=== PATIENT | female | born 1975 | race Caucasian/White ===

== ENCOUNTER 2018-07-02 18:36 | Inpatient (IN) | payer MEDICAID ==
[~2018-07-02] VITALS: Ht 162.6 cm; Wt 114.8 kg
[~2018-07-02 18:36] MED LIST: ACETAMINOPHEN-1 EAC1 PO; ALPRAZOLAM; AMBIEN CR 6.26.25 M1 PO; AMBIENCR; AMITRIPTYLINE H10 M1; AMOXICILLIN 50500 M1 PO; AMOXICILLIN 50500 MG PO; AMOXICILLIN/POTASSIU; ANTI-INFLAMMATORY; ATIVAN1 MG PO; BACLOFEN 10MG T10 M1 PO; BACTRIM DS TAB1 EACH PO; BENTYL20 MG PO; CARISOPRODOL 3350 MG PO; CLONAZEPAM; CYMBALTA60 MG; CYMBALTA60 MG PO; DARVOCET N PO; EFFEXOR; ESTRACE0.5 MG PO; FAMOTIDINE PO; FIORICET 50-321 EACH PO; FLEXERIL PO; GEODON60 MG PO; GEODON80 MG PO; HYDROCODON-ACE1 EAC7 PO; HYDROCODONE-AP1 EAC6 PO; IBUPROFEN 800800 M1 PO; KEFLEX500 MG PO; LYRICA; LYRICA150 MG; MEDROLDOSEPACK PO; NAPROSYN500 MG PO; NEURONTIN 300300 M1; NORCO 5-325 TA1 EACH; NORCO 5-325 TA1 EACH PO; NORFLEX100 MG PO; OLEPTRO ER300 M1 PO; PERCOCET 5-3251 EACH PO; PHENERGAN 25 MG25 M1 PO; PHENERGAN25 MG RE; PREDNISONE50 MG PO; PREMPRO 0.625-1 EAC1 PO; PRISTIQ50 M1 PO; PROMETHAZINE12.5 M1 PO; PROZAC; PROZAC40 MG; RELAFEN750 MG PO; SOMA250 MG PO; TEMAZEPAM; TORADOL 10 MG T10 MG PO; TRAZODONE HCL100 MG; ULTRAM 50MG TAB50 MG PO; VALIUM2 MG PO; VALIUM5 MG PO; VICODIN 5-5001 EACH PO; VICOPROFEN 2001 EACH PO; VISTARIL 25 MG25 M1 PO; VISTARIL PO; XANAFLEX; XANAX XR1 MG PO; ZANAFLEX4 M1
[2018-07-02 18:37] VITALS: BP 146/80
[2018-07-02] MEDS ORDERED: TEGRETOL XR100 MG PO (18:45)
[2018-07-02] MEDS ORDERED: XANAX1 MG PO (18:45)
[2018-07-02] MEDS ORDERED: BUSPIRONE HCL10 MG PO (18:46)
[2018-07-02 19:10] LABS: ABSOLUTE BASOPHILS 0.1 thou/uL (0.0-0.2); ABSOLUTE EOSINOPHILS 0.7 thou/uL (0.0-0.7); ABSOLUTE LYMPHOCYTES 3.2 thou/uL (0.8-5.3); ABSOLUTE MONOCYTES 1.1 thou/uL (0.0-1.2); BASOPHILS 0.5 %; EOSINOPHILS 5.2 %; HEMATOCRIT 34.7 % (37.0-47.0); HEMOGLOBIN 11.5 gm/dL (12.0-15.0); LYMPHOCYTES 22.8 %; MCH 32.4 pg (26.0-34.0); MCHC 33.3 g/dL (28.0-37.0); MCV 97.4 fL (80.0-100.0); MONOCYTES 7.8 %; MPV 7.4 fl. (7.2-11.1); NUCLEATED RBCS 0 /100WBC; PLATELET COUNT* 306 thou/uL (150-400); POLYS 63.7 %; RBC 3.56 mil/uL (4.20-5.00); RDW-CV 14.4 % (10.5-14.5)
[2018-07-02 19:28] LABS: ANION GAP 11 mmol/L (7-16); BUN 15 mg/dL (7-18); CALCIUM 8.8 mg/dL (8.5-10.1); CHLORIDE 102 mmol/L (98-107); CO2 24 mmol/L (21-32); CREATININE 0.7 mg/dL (0.6-1.3); GLUCOSE 108 mg/dL (70-99); SODIUM 137 mmol/L (136-145)
[2018-07-02 19:46] LABS: ALBUMIN 3.6 g/dL (3.4-5.0); ALKALINE PHOSPHATASE 74 U/L (46-116); SGOT 27 U/L (15-37); SGPT 25 U/L (30-65); TOTAL BILIRUBIN 0.3 mg/dL (<0.1-1.0); TOTAL PROTEIN 7.3 g/dL (6.4-8.2); TROPONIN-I LEVEL <0.06 ng/mL (<0.06)
[2018-07-02 20:05] LABS: LIPASE 6128 U/L (73-393)
[2018-07-02 20:53] VITALS: BP 129/82
[2018-07-02 21:05] VITALS: BP 144/83
--- NOTE | 2018-07-03 05:51 | NUR ---
PT HAS SLEPT ON AND OFF FOR BRIEF PERIODS SINCE ARRIVING FROM ER. CO UPPER ABD PAIN 10/10-MEDICATED WITH MORPHINE 8MG AND CURRENTLY FENTANYL 100MCG FOR SHORT LIVED PAIN CONTROL. PT NPO, MOUTH SWABS GIVEN. ZOFRAN GIVEN FOR NAUSEA-DRY HEAVES BUT NO EMESIS. UP WITH SBA TO BSC TO VOID SEVERAL TIMES. LHAND IVF INFUSING PER PUMP. NICOTINE PATCH PLACED PER PT REQUEST. URINE SPECIMEN SENT TO LAB. ABLE TO USE CALL LITE AND MAKE NEEDS KNOWN. BED ALARM ON FOR SAFETY, CALL LITE IN EASY REACH.
[2018-07-03 05:52] LABS: URINE BILIRUBIN NEGATIVE (Negative); URINE BLOOD NEGATIVE (Negative); URINE CLARITY CLEAR; URINE COLOR YELLOW; URINE GLUCOSE-RANDOM NEGATIVE (Negative); URINE KETONES NEGATIVE (Negative); URINE LEUKOCYTES NEGATIVE (Negative); URINE NITRITE NEGATIVE (Negative); URINE PROTEIN NEGATIVE (Negative); URINE SPECIFIC GRAVITY 1.025 (1.005-1.030); URINE UROBILINOGEN 0.2 E.U./dl (0.2-1.0)
[2018-07-03 09:48] LABS: CHOLESTEROL 234 mg/dL (<200); HDL CHOLESTEROL 31 mg/dL (>40); LDL CHOLESTEROL 144 mg/dL (<100); TC:HDL 7.5 Ratio (Not establshd); TRIGLYCERIDE 298 mg/dL (<150); VLDL 60 mg/dL (<40)
[2018-07-03 09:51] LABS: SERUM ASSESSMENT Clear
--- NOTE | 2018-07-03 10:45 | EKG ---
[place] [address] ELECTROCARDIOGRAM REPORT Name: KISHANBEN PERRY Room: [address] ADM IN .R.#: [id number] Admission: 07/02/18 Attend Phys: Yrn Reina Discharge: Date of : 71 Report #: [id number] THIS REPORT FOR: //name// [facility] ED Test Date: 2018-07-02 Test Time: 19:14:53 Pat Name: BEN HOLLEY Department: Room: [facility] Gender: F Administrative Support Associate: : 1975 Requested By: Rubina Mills Order Number: [id number] MD: Efraín Villasenor Measurements Intervals [place] Rate: 101 P: -25 MS: 130 QRS: 60 QRSD: 119 T: -3 QT: 380 QTc: 493 Interpretive Statements Sinus tachycardia Nonspecific intraventricular conduction delay Low voltage, precordial leads Nonspecific T abnormalities, anterior leads Baseline wander in lead(s) V1,V4,V5 Compared to ECG 08/12/2007 13:25:15 Intraventricular conduction delay now present Low QRS voltage now present T-wave abnormality now present Sinus rhythm no longer present Electronically Signed On 07-03-2018 10:45:26 CDT by Efraín Villasenor [email or web address] <ELECTRONICALLY SIGNED> By: Efraín Villasenor MD, [facility] 07/03/18 1045 13 13 Efraín Villasenor MD, [facility] /EPI
--- NOTE | 2018-07-03 14:47 | NUR ---
SPOKE WITH PT. SHE SAID SHE LIVES WITH HER MOM AND HELPS TAKE CARE OF HER. MOM HAS M.S. PT.IS NOT SUPPOSED TO DO ANY HEAVY LIFTING WITH HER LEGS. HER DAUGHTER AMD FRIEND HELP HER WITH HER MOM. 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 PT.DOES NOT HAVE A CAR. SHE HAS A STOOL RISER AND A WALKER. SHE DOESN'T HAVE TO USE HER WALKER MUCH ANYMORE. SHE SAID SHE SHOULD HAVE NO DISCHARGE NEEDS. CM WILL FOLLOW.
[2018-07-03 16:54] VITALS: BP 128/84
--- NOTE | 2018-07-03 17:10 | NUR ---
SHIFT NOTE - PT CALLING OUT SEVERAL TIMES THIS SHIFT FOR PAIN MEDICATION. MEDS TITRATED TO MSO4 8MG Q2HR/PRN. PT UP TO COMMODE WITH STANDBY. PT STILL NPO. IVF INFUSING.
[2018-07-03 20:50] VITALS: BP 112/68
[2018-07-04 03:59] LABS: HEMATOCRIT 32.4 % (37.0-47.0); MCH 32.9 pg (26.0-34.0); MCV 96.8 fL (80.0-100.0); MPV 7.4 fl. (7.2-11.1); RBC 3.35 mil/uL (4.20-5.00); RDW-CV 14.2 % (10.5-14.5); WBC 10.7 thou/uL (4.0-11.0)
[2018-07-04 04:23] LABS: ALBUMIN 2.9 g/dL (3.4-5.0); CALCIUM 7.7 mg/dL (8.5-10.1); CREATININE 0.4 mg/dL (0.6-1.3); MAGNESIUM 1.8 mg/dL (1.8-2.4); POTASSIUM 3.6 mmol/L (3.5-5.1); TOTAL PROTEIN 5.9 g/dL (6.4-8.2)
--- NOTE | 2018-07-04 05:33 | NUR ---
PT RECEIVING IV MORPHINE 8MG EVERY 2-3 HOURS PRN FOR ABD PAIN 06/05 WITH FAIR RESULTS. PT SLEEPING/SNORING AFTER DOSING, SATS DROPPING TO 84% WITH SOMNOLENCE. O2 2L PLACED ON PT TO KEEP SATS >92%. UP WITH SBA TO BSC TO VOID. ZOFRAN GIVEN PRN FOR CO NAUSEA CAUSED BY PAIN MED PT STATES, NO EMESIS SEEN. NPO. AM LABS DRAWN. LIPASE LAB IMPROVED BUT STILL ELEVATED THIS MORNING. L HAND IVF INFUSING PER PUMP. ABLE TO USE CALL LITE AND MAKE NEEDS KNOWN.
[2018-07-04 08:30] VITALS: BP 127/79
[2018-07-04 16:00] VITALS: BP 149/88
--- NOTE | 2018-07-04 17:04 | NUR ---
PATIENT ALERT AND ORIENTED X 4. VITAL SIGNS STABLE ON ROOM AIR. UP WITH ASSISTANCE TO THE BEDSIDE COMODE. IV PATENT WITH FLUIDS INFUSING. PAIN AND NAUSEA BEING MANAGED WITH IV MEDICATIONS. TOLERATING CLEAR LIQUID DIET. FALL PRECAUTIONS IN PLACE AND BED ALARM ON. HOURLY ROUNDS MAINTAINED THROUGHOUT THE SHIFT. CALL LIGHT WITHIN REACH. NURSING WILL CONTINUE TO MONITOR.
[2018-07-04 20:15] VITALS: BP 131/83
[2018-07-05 04:17] LABS: ABSOLUTE EOSINOPHILS 0.3 thou/uL (0.0-0.7); ABSOLUTE LYMPHOCYTES 2.1 thou/uL (0.8-5.3); ABSOLUTE MONOCYTES 0.8 thou/uL (0.0-1.2); ABSOLUTE NEUTROPHILS 8.6 thou/uL (1.6-8.1); BASOPHILS 0.3 %; EOSINOPHILS 2.1 %; HEMATOCRIT 30.5 % (37.0-47.0); HEMOGLOBIN 10.2 gm/dL (12.0-15.0); LYMPHOCYTES 17.8 %; MCH 32.5 pg (26.0-34.0); MCHC 33.6 g/dL (28.0-37.0); MCV 96.8 fL (80.0-100.0); MPV 7.4 fl. (7.2-11.1); NUCLEATED RBCS 0 /100WBC; PLATELET COUNT* 255 thou/uL (150-400); POLYS 72.8 %; RBC 3.15 mil/uL (4.20-5.00); RDW-CV 14.1 % (10.5-14.5); WBC 11.7 thou/uL (4.0-11.0)
[2018-07-05 04:52] LABS: ALBUMIN 2.6 g/dL (3.4-5.0); CALCIUM 8.1 mg/dL (8.5-10.1); CREATININE 0.4 mg/dL (0.6-1.3); POTASSIUM 3.4 mmol/L (3.5-5.1); TOTAL BILIRUBIN 0.4 mg/dL (<0.1-1.0)
--- NOTE | 2018-07-05 05:35 | NUR ---
PATIENT REMAINS ALERT AND ORIENTED X4 THROUGHOUT SHIFT. VITAL SIGNS STABLE ON ROOM AIR. IV PATENT IN THE LEFT FOREARM INFUSING AT 200 ML/HR PER ORDERS. TRANSFERS STANDBY ASSIST TO THE BEDSIDE COMMODE. PAIN AND NAUSEA MANAGED WITH IV MEDICATION PER ORDERS. TOLERATING DIET. RESTING COMFORTABLY THROUGHOUT THE NIGHT. HOURLY ROUNDING COMPLETE. CALL LIGHT WITHIN REACH. NURSING WILL CONTINUE TO MONITOR.
[2018-07-05 06:34] LABS: ESR (SEDRATE) 45 mm/hr (0-20)
[2018-07-05 08:30] VITALS: BP 130/84
[2018-07-05 17:10] VITALS: BP 150/97
--- NOTE | 2018-07-05 17:17 | NUR ---
PATIENT ALERT AND ORIENTED X 4. VITAL SIGNS STABLE ON ROOM AIR. AFEBRILE. UP WITH STAND BY ASSIST TO THE BEDSIDE COMODE. IV PATENT WITH FLUIDS INFUSING. PAIN AND NAUSEA BEING MANAGED WITH IV MEDICATIONS. NOT TOLERATING CLEARS VERY WELL. HAD MODERATE AMOUNT OF EMESIS AFTER EATING CLEAR LIQUID LUNCH. HOURLY ROUNDS MAINTAINED THROUGHOUT THE SHIFT. CALL LIGHT WITHIN REACH. NURSING WILL CONTINUE TO MONITOR.
[2018-07-05 20:30] VITALS: BP 131/88
[2018-07-06 04:28] LABS: HEMOGLOBIN 10.2 gm/dL (12.0-15.0); MCHC 33.9 g/dL (28.0-37.0); MCV 97.2 fL (80.0-100.0); MPV 7.5 fl. (7.2-11.1); RBC 3.08 mil/uL (4.20-5.00); RDW-CV 13.9 % (10.5-14.5); WBC 10.2 thou/uL (4.0-11.0)
[2018-07-06 04:50] LABS: ALBUMIN 2.6 g/dL (3.4-5.0); CALCIUM 7.9 mg/dL (8.5-10.1); CREATININE 0.4 mg/dL (0.6-1.3); MAGNESIUM 1.8 mg/dL (1.8-2.4); POTASSIUM 3.2 mmol/L (3.5-5.1); TOTAL BILIRUBIN 0.3 mg/dL (<0.1-1.0); TOTAL PROTEIN 6.1 g/dL (6.4-8.2)
--- NOTE | 2018-07-06 05:18 | NUR ---
PT SLEPT ON AND OFF THIS SHIFT. ASSESSMENT DOCUMENTED. MEDS GIVEN PER E-MAR. IV PATENT. FLUIDS INFUSING. PT STATED SHE DOES NOT WANT FLUIDS RUNNING ANY FASTER THAN 100 ML/HR BECAUSE IT MAKES HER FEEL "FUNNY" IF THEY RUN ANY FASTER. PAIN AND NAUSEA MEDS GIVEN PER E-MAR PER PT REQUEST. WILL CONTINUE WITH PLAN OF CARE.
--- NOTE | 2018-07-06 14:07 | NUR ---
Nutrition: Pt admitted with pancreatitis. Pt was dismissive in conversation. Pancreatitis is of unknown origin. She stated she has had it in the past. We discussed a lower fat diet. She gave me her diet recall; I provided tips and options on how adjust her diet. Heart Healthy dinner ordered to start tonight. H/o personality disorder, fibromyalgia. Pt likely discharging home tomorrow. Mild risk.
[2018-07-06 16:00] VITALS: BP 140/72
--- NOTE | 2018-07-06 18:26 | NUR ---
PT DENIES PAIN. TOLERATES DIET WITHOUT PAIN OR NAUSEA. C/O NAUSEA ONCE TODAY, GIVEN ZOFRAN WITH RELIEF. PT DENIES ANY NEEDS OR C/O. PT ABLE TO MAKE NEEDS KNOWN, CALL LIGHT IN REACH
[2018-07-06 20:15] VITALS: BP 148/87
[2018-07-07 04:47] LABS: HEMATOCRIT 30.7 % (37.0-47.0); HEMOGLOBIN 10.4 gm/dL (12.0-15.0); MCH 32.6 pg (26.0-34.0); MCHC 33.7 g/dL (28.0-37.0); MCV 96.7 fL (80.0-100.0); MPV 7.5 fl. (7.2-11.1); RBC 3.18 mil/uL (4.20-5.00); RDW-CV 14.3 % (10.5-14.5); WBC 11.2 thou/uL (4.0-11.0)
[2018-07-07 05:07] LABS: ALBUMIN 2.8 g/dL (3.4-5.0); CALCIUM 8.1 mg/dL (8.5-10.1); CREATININE 0.4 mg/dL (0.6-1.3); MAGNESIUM 1.8 mg/dL (1.8-2.4); POTASSIUM 3.2 mmol/L (3.5-5.1); TOTAL BILIRUBIN 0.3 mg/dL (<0.1-1.0); TOTAL PROTEIN 6.3 g/dL (6.4-8.2)
--- NOTE | 2018-07-07 06:08 | NUR ---
PT SLEPT MOST OF SHIFT. ASSESSMENT DOCUMENTED. MEDS GIVEN PER E-DEC. IV PATENT, FLUIDS INFUSING. TYLENOL GIVEN FOR BACK PAIN PER E-DEC. NO REPORTS OF NAUSEA. PT STATED SHE GETS ANXIOUS WHEN SHE IS SLEEPING, BENADRYL GIVEN PER E-DEC. PT STATING SHE WANTS TO GO HOME. WILL CONTINUE WITH PLAN OF CARE.
[2018-07-07] MEDS ORDERED: HYDROCODON-ACE1 EAC7 PO (08:49)
[2018-07-07] MEDS ORDERED: NICOTINE TRANSD14 M1 TRANSDERM (08:49)
[2018-07-07] MEDS ORDERED: ATORVASTATIN CA40 MG PO (08:49)
[2018-07-07 10:40] VITALS: BP 148/87
[2018-07-07 10:52] VITALS: BP 148/87
--- NOTE | 2018-07-07 10:53 | NUR ---
PATIENT IS ALERT AND ORIENTED TODAY, VITAL SIGNS STABLE ON ROOM AIR. SOME COMPLAINTS OF PAIN, REFUSED NICOTINE PATCH TODAY. PATIENT IS BEING DISCHARGED TO HOME. DISCHARGE INSTRUCTIONS AND PRESCRIPTIONS GIVEN QUESTIONS ANSWERED FOR MAG. PATIENT AMBULATED OUT WITH FRIEND TO HOME.
--- NOTE | 2018-07-23 13:22 | CON ---
[address] [address] CONSULTATION Name: BEN HOLLEY Room: [address] IN M.R.#: [id number] Admission: 07/02/18 Attend Phys: Yrn Reina Discharge: 07/07/18 Date of : 71 Report #: [id number] THIS REPORT FOR: //name// CC: Fady Barton HISTORY OF PRESENT ILLNESS: This is a pleasant 42-year-old female with history of previous episode of pancreatitis, who is presenting with another episode of acute epigastric pain. The patient reports the pain started 2 days back and since then, progressed in severity and forcing the patient to present to the hospital. The patient reports the pain is located in the epigastrium, is sharp and can be 10/10 in intensity. The pain does not radiate anywhere and has no specific association with food or bowel movements. The patient reports associated nausea and dry heaving. She does not report any change in her bowel habits, fevers, chills or weight loss. The patient reports this episode of pain is similar to her last episode of pancreatitis. The patient does report he had a cholecystectomy in the remote past, but cannot remember when. The patient reports her last episode of pancreatitis was 2 years back and she had her cholecystectomy prior to this episode. PAST MEDICAL HISTORY: The patient has no known history of diabetes, hypertension or hyperlipidemia. PAST SURGICAL HISTORY: The patient had total hysterectomy, total knee replacement, cholecystectomy in the past. FAMILY HISTORY: Mother has a history of multiple sclerosis. SOCIAL HISTORY: The patient has a 30 pack-year history of smoking and is an active smoker. She reports remote alcohol and recreational drug use, but denies any use in the last 10 years. She currently lives at home with her mother and is on disability. REVIEW OF SYSTEMS: A comprehensive 10-point review of systems is negative except for what is mentioned above. PHYSICAL EXAMINATION: VITAL SIGNS: Temperature 36.7, pulse rate 100, respirations 22, blood pressure 144/83, pulse ox % on room air. GENERAL: The patient is alert, awake, oriented times 3. There is no congestion. Mucous membranes are moist. Pupils are equal, round, reactive to light and accommodation. NECK: Supple and there is no supraclavicular lymphadenopathy. LUNGS: Clear to auscultation. CARDIOVASCULAR: Rate and rhythm regular, S1, S2 [place] [address] CONSULTATION Name: BEN HOLLEY Room: [address]#: [id number] Admission: 07/02/18 Attend Phys: Yrn Reina Discharge: 07/07/18 Date of : 71 Report #: [id number] ABDOMEN: Soft. There is tenderness in the epigastric region. No organomegaly. Bowel sounds are present. EXTREMITIES: Warm, well perfused. There is no edema. NEUROLOGIC: There is no focal neurological deficit. LABORATORY EVALUATION: Hemoglobin 11.5, hematocrit 34.7, platelet count 306. WBC count 14. Sodium 137, potassium 4, chloride 24, chloride 102, bicarbonate 24, BUN 15, creatinine 0.7, calcium 8.8, total bilirubin 0.3, AST 27, ALT 25, alkaline phosphatase 74 and lipase 6128. IMAGING DATA: Abdomen CT: Abnormal pancreatic inflammation, consistent with acute pancreatitis. No pancreatic mass or calcification seen and the gallbladder and are surgically absent. ASSESSMENT AND PLAN: This is a pleasant 42-year-old female with past medical history of pancreatitis who is presenting with another episode of acute pancreatitis. 1. Acute pancreatitis, mild in severity without any local complications. 2. Continue conservative management for treatment of acute pancreatitis. The patient will need endoscopic ultrasound as outpatient for evaluation of recurrent acute pancreatitis. I would advise smoking cessation, as this can contribute to recurrent episodes of acute pancreatitis and chronic pancreatitis. <ELECTRONICALLY SIGNED> By: Tj Donovan MD 07/23/18 1322 1646 0356Tj Donovan MD /nt
== END 2018-07-07 10:55 | disposition home or self-care (01) | DRG 438 ==
LOC: M.ERS 18:36 → M.ORTHSURG 20:16 → M.TBA-ER 20:16 → M.ORTHSURG 21:05
PROVIDERS: Family Medicine; Internal Medicine; Internal Medicine Gastroenterology; Physician Assistant; ADMIT Internal Medicine
DX: K85.90 Acute pancreatitis without necrosis or infection, unspecified (principal); J96.91 Respiratory failure, unspecified with hypoxia; Z68.41 Body mass index [BMI] 40.0-44.9, adult; M54.9 Dorsalgia, unspecified; G89.29 Other chronic pain; M79.7 Fibromyalgia; M46.90 Unspecified inflammatory spondylopathy, site unspecified; F17.210 Nicotine dependence, cigarettes, uncomplicated; Z96.659 Presence of unspecified artificial knee joint; E86.0 Dehydration; D64.9 Anemia, unspecified; E66.01 Morbid (severe) obesity due to excess calories; E87.6 Hypokalemia; K76.0 Fatty (change of) liver, not elsewhere classified; Z90.710 Acquired absence of both cervix and uterus; Z79.899 Other long term (current) drug therapy; Z88.8 Allergy status to other drugs, medicaments and biological substances; Z90.49 Acquired absence of other specified parts of digestive tract; Z84.89 Family history of other specified conditions

== ENCOUNTER 2018-10-22 04:02 | Inpatient (IN) | payer MEDICAID ==
[~2018-10-22] VITALS: Ht 162.6 cm; Wt 99.8 kg
[~2018-10-22 04:02] MED LIST changes: +ATORVASTATIN CA40 MG PO; +BUSPIRONE HCL10 MG PO; +NICOTINE TRANSD14 M1 TRANSDERM; +TEGRETOL XR100 MG PO; +XANAX1 MG PO
[2018-10-22 04:03] VITALS: BP 167/101
[2018-10-22 04:14] LABS: ABSOLUTE BASOPHILS 0.1 thou/uL (0.0-0.2); ABSOLUTE EOSINOPHILS 0.4 thou/uL (0.0-0.7); ABSOLUTE LYMPHOCYTES 1.8 thou/uL (0.8-5.3); ABSOLUTE MONOCYTES 1.2 thou/uL (0.0-1.2); BASOPHILS 0.5 %; HEMATOCRIT 36.4 % (37.0-47.0); HEMOGLOBIN 12.2 gm/dL (12.0-15.0); LYMPHOCYTES 10.3 %; MCH 31.1 pg (26.0-34.0); MCHC 33.6 g/dL (28.0-37.0); MCV 92.5 fL (80.0-100.0); MONOCYTES 7.1 %; MPV 7.2 fl. (7.2-11.1); NUCLEATED RBCS 0 /100WBC; PLATELET COUNT* 375 thou/uL (150-400); POLYS 80.1 %; RBC 3.93 mil/uL (4.20-5.00); RDW-CV 13.7 % (10.5-14.5); WBC 17.5 thou/uL (4.0-11.0)
[2018-10-22 04:41] LABS: ALBUMIN 3.5 g/dL (3.4-5.0); ALKALINE PHOSPHATASE 125 U/L (46-116); ANION GAP 13 mmol/L (7-16); BUN 10 mg/dL (7-18); CHLORIDE 102 mmol/L (98-107); CO2 25 mmol/L (21-32); CREATININE 0.7 mg/dL (0.6-1.3); GLUCOSE 135 mg/dL (70-99); POTASSIUM 3.8 mmol/L (3.5-5.1); SGOT 40 U/L (15-37); SGPT 39 U/L (30-65); SODIUM 140 mmol/L (136-145); TOTAL BILIRUBIN 0.4 mg/dL (<0.1-1.0); TROPONIN-I LEVEL <0.06 ng/mL (<0.06)
[2018-10-22 04:56] LABS: LIPASE 7328 U/L (73-393)
[2018-10-22 07:49] VITALS: BP 176/87
[2018-10-22 08:10] VITALS: BP 166/92
--- NOTE | 2018-10-22 10:39 | EKG ---
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: : 1975 Requested By: Nuria Mccullough Order Number: [id number] MD: Wesley Dunlap Measurements Intervals [place] Rate: 67 P: -13 RI: 139 QRS: 38 QRSD: 107 T: 20 QT: 436 QTc: 461 Interpretive Statements Sinus rhythm Low voltage, precordial leads Nonspecific T abnormalities, anterior leads Compared to ECG 07/02/2018 19:14:53 Sinus tachycardia no longer present T-wave abnormality still present Electronically Signed On 10-22-2018 10:39:03 JUNIOR ELECTRICAL ENGINEER by Wesley Dunlap [email or web address] <ELECTRONICALLY SIGNED> By: Wesley Dunlap MD, FACC 10/22/18 1039 0505 0505 Wesley Dunlap MD, [facility] /EPI
[2018-10-22 12:44] VITALS: BP 146/83
[2018-10-22 15:53] VITALS: BP 152/86
[2018-10-22 20:00] VITALS: BP 130/62
[2018-10-23 08:00] VITALS: BP 132/81
[2018-10-23 11:36] LABS: HEMATOCRIT 36.3 % (37.0-47.0); HEMOGLOBIN 12.1 gm/dL (12.0-15.0); MCH 31.5 pg (26.0-34.0); MCHC 33.4 g/dL (28.0-37.0); MCV 94.4 fL (80.0-100.0); MPV 7.8 fl. (7.2-11.1); RBC 3.85 mil/uL (4.20-5.00); WBC 12.4 thou/uL (4.0-11.0)
[2018-10-23 12:00] VITALS: BP 134/79
[2018-10-23 12:07] LABS: ALBUMIN 3.1 g/dL (3.4-5.0); ALKALINE PHOSPHATASE 161 U/L (46-116); ANION GAP 8 mmol/L (7-16); BUN 8 mg/dL (7-18); CALCIUM 8.3 mg/dL (8.5-10.1); CHLORIDE 103 mmol/L (98-107); CHOLESTEROL 131 mg/dL (<200); CO2 26 mmol/L (21-32); CREATININE 0.6 mg/dL (0.6-1.3); GLUCOSE 115 mg/dL (70-99); HDL CHOLESTEROL 34 mg/dL (>40); LDL CHOLESTEROL 76 mg/dL (<100); POTASSIUM 3.2 mmol/L (3.5-5.1); SERUM ASSESSMENT Clear; SGOT 111 U/L (15-37); SGPT 79 U/L (30-65); SODIUM 137 mmol/L (136-145); TC:HDL 3.9 Ratio (Not establshd); TOTAL BILIRUBIN 0.8 mg/dL (<0.1-1.0); TOTAL PROTEIN 6.8 g/dL (6.4-8.2); TRIGLYCERIDE 106 mg/dL (<150); VLDL 21 mg/dL (<40)
[2018-10-23 12:25] LABS: LIPASE 4136 U/L (73-393)
[2018-10-23 19:30] VITALS: BP 126/83
[2018-10-24 03:18] LABS: URINE BILIRUBIN NEGATIVE (Negative); URINE BLOOD NEGATIVE (Negative); URINE CLARITY CLEAR; URINE COLOR YELLOW; URINE GLUCOSE-RANDOM NEGATIVE (Negative); URINE KETONES NEGATIVE (Negative); URINE LEUKOCYTES-REFLEX NEGATIVE (Negative); URINE NITRITE-REFLEX NEGATIVE (Negative); URINE PROTEIN NEGATIVE (Negative)
[2018-10-24 04:45] LABS: HEMATOCRIT 34.6 % (37.0-47.0); HEMOGLOBIN 11.6 gm/dL (12.0-15.0); MCH 31.6 pg (26.0-34.0); MCHC 33.5 g/dL (28.0-37.0); MCV 94.4 fL (80.0-100.0); MPV 7.5 fl. (7.2-11.1); RBC 3.67 mil/uL (4.20-5.00); RDW-CV 14.4 % (10.5-14.5); WBC 9.6 thou/uL (4.0-11.0)
[2018-10-24 05:17] LABS: ALBUMIN 2.9 g/dL (3.4-5.0); CALCIUM 9.3 mg/dL (8.5-10.1); CREATININE 0.5 mg/dL (0.6-1.3); DIRECT BILIRUBIN 0.7 mg/dL (<0.1-0.3); POTASSIUM 4.2 mmol/L (3.5-5.1); TOTAL BILIRUBIN 1.1 mg/dL (<0.1-1.0); TOTAL PROTEIN 6.6 g/dL (6.4-8.2)
[2018-10-24 08:20] VITALS: BP 145/84
[2018-10-24 22:00] VITALS: BP 145/99
[2018-10-24 23:09] LABS: IgG 829 mg/dL (700-1600)
[2018-10-25 04:25] LABS: HEMATOCRIT 33.1 % (37.0-47.0); HEMOGLOBIN 11.2 gm/dL (12.0-15.0); MCHC 33.8 g/dL (28.0-37.0); MCV 94.7 fL (80.0-100.0); MPV 7.5 fl. (7.2-11.1); RBC 3.5 mil/uL (4.20-5.00); RDW-CV 14.1 % (10.5-14.5); WBC 10.1 thou/uL (4.0-11.0)
[2018-10-25 04:41] LABS: ALBUMIN 2.9 g/dL (3.4-5.0); CALCIUM 8.8 mg/dL (8.5-10.1); CREATININE 0.5 mg/dL (0.6-1.3); POTASSIUM 3.7 mmol/L (3.5-5.1); TOTAL BILIRUBIN 0.5 mg/dL (<0.1-1.0); TOTAL PROTEIN 6.5 g/dL (6.4-8.2)
[2018-10-25 05:30] VITALS: BP 136/87
[2018-10-25 07:50] VITALS: BP 136/81
[2018-10-25 16:48] VITALS: BP 133/94
[2018-10-25 20:00] VITALS: BP 141/86
[2018-10-26 08:17] VITALS: BP 163/92
[2018-10-26 11:11] LABS: ANA INTERPRETATION Negative (Negative)
--- NOTE | 2018-10-29 14:51 | CON ---
[address] [address] CONSULTATION Name: BEN HOLLEY Room: [address] IN ..#: [id number] Admission: 10/22/18 Attend Phys: Yasir Madsen MD Discharge: 10/26/18 Date of : 71 Report #: [id number] THIS REPORT FOR: //name// CC: Yasir Sanchez DATE OF SERVICE: 10/23/2018 REASON FOR CONSULTATION: Elevated lipase and abdominal pain. HISTORY OF PRESENT ILLNESS: This is a 43-year-old female who is well known to us as she had a previous history of pancreatitis and underwent endoscopic ultrasound by our partner, Dr. Donovan. The patient reports that she started feeling sick to her stomach with pain in the epigastric region, bloating, nausea and vomiting, which prompted her to come to hospital. Since admission, she was found to have elevated lipase in the range of 7000. Also, her AST and ALT were elevated. She denies alcohol consumption on regular basis, but reports that on 10/06/2018, she had 2 shots since her son was getting . She admits to smoking 1 pack of cigarettes per day. She reports that she is feeling somewhat better and passing gas from below. She is able to tolerate liquids, but continues to have some abdominal pain. PAST MEDICAL HISTORY: Significant for history of anxiety, knee replacement, hysterectomy, gallbladder disease, status post cholecystectomy, chronic pancreatitis, bipolar mood disorder and dyslipidemia. ALLERGIES: INCLUDE DIVALPROEX, ABILIFY, KETOROLAC, TRAMADOL, QUETIAPINE, SERTRALINE, GABAPENTIN, LYRICA. SOCIAL HISTORY: The patient lives at home with her son, admits to smoking 1 pack of cigarettes per day. She denies any alcohol use, but admits that she had 2 shots when her son got on 10/06/2018. FAMILY HISTORY: Negative for GI malignancy or pancreatitis. PHYSICAL EXAMINATION: VITAL SIGNS: Reveals blood pressure of 134/79, respirations 16, pulse 89, temperature 98.5. LUNGS: Clear. CARDIOVASCULAR: Regular. ABDOMEN: Soft, mildly tender to palpation in the epigastric region. Bowel sounds are positive. NEUROLOGIC: The patient is alert, oriented x 3[place] [address] CONSULTATION Name: BEN HOLELY Room: [address]#: [id number] Admission: 10/22/18 Attend Phys: Yasir Madsen MD Discharge: 10/26/18 Date of : 71 Report #: [id number] LABORATORY DATA: Reveal sodium of 137, potassium 3.2, BUN is 8, creatinine 0.6, glucose 115, AST is 111, ALT is 79, alkaline phosphatase 161. Lipase is 4136, total bilirubin is 0.6. WBC is 12.4 with hemoglobin of 12.1, platelet of 337. IMAGING: Abdominal ultrasound was obtained, which was not a good study to evaluate the pancreas, but there was no dilation of intrahepatic or extrahepatic ducts and the ducts measured 7 mm in size and gallbladder was surgically absent. ASSESSMENT AND PLAN: The patient with history of chronic pancreatitis and recent history of endoscopic ultrasound. I would consider checking her triglyceride to assure that is not cause of her pancreatitis. She also has elevated liver enzymes and alkaline phosphatase. We will monitor those as she is getting over her pancreatitis. Meanwhile, continue liquid diet and IV hydration. We treat her nausea with Zofran and continue to follow up closely. <ELECTRONICALLY SIGNED> By: Brad Ellsworth MD 10/29/18 1451 1756 2105Brad Ellsworth MD /nt
== END 2018-10-26 15:31 | disposition left against medical advice (07) | DRG 438 ==
LOC: M.ERS 04:02 → M.ORTHSURG 05:21 → M.TBA-ER 05:21 → M.ORTHSURG 07:53
PROVIDERS: Family Medicine; Internal Medicine Gastroenterology; Personal Emergency Response Attendant; ADMIT Internal Medicine
DX: K85.90 Acute pancreatitis without necrosis or infection, unspecified (principal); R65.11 Systemic inflammatory response syndrome (SIRS) of non-infectious origin with acute organ dysfunction; K86.1 Other chronic pancreatitis; G89.29 Other chronic pain; M54.9 Dorsalgia, unspecified; M19.90 Unspecified osteoarthritis, unspecified site; M79.7 Fibromyalgia; F17.210 Nicotine dependence, cigarettes, uncomplicated; F31.9 Bipolar disorder, unspecified; F41.9 Anxiety disorder, unspecified; E66.01 Morbid (severe) obesity due to excess calories; Z53.21 Procedure and treatment not carried out due to patient leaving prior to being seen by health care provider; E78.5 Hyperlipidemia, unspecified; E87.6 Hypokalemia; Z76.5 Malingerer [conscious simulation]; Z88.8 Allergy status to other drugs, medicaments and biological substances; Z88.6 Allergy status to analgesic agent; Z79.899 Other long term (current) drug therapy; Z90.49 Acquired absence of other specified parts of digestive tract; Z90.710 Acquired absence of both cervix and uterus; Z68.37 Body mass index [BMI] 37.0-37.9, adult

== ENCOUNTER 2018-10-27 11:42 | Inpatient (IN) | payer MEDICAID ==
[~2018-10-27] VITALS: Ht 162.6 cm; Wt 98.9 kg
[2018-10-27 11:51] VITALS: BP 177/89
[2018-10-27 12:27] LABS: URINE BLOOD NEGATIVE (Negative); URINE CLARITY CLEAR; URINE COLOR YELLOW; URINE GLUCOSE-RANDOM NEGATIVE (Negative); URINE KETONES 1+ (Negative); URINE LEUKOCYTES-REFLEX NEGATIVE (Negative); URINE NITRITE-REFLEX NEGATIVE (Negative); URINE PROTEIN 1+ (Negative); URINE UROBILINOGEN 0.2 E.U./dl (0.2-1.0)
[2018-10-27 12:30] LABS: ICTOTEST (BILI CONFIRMATORY) Negative (Negative); URINE BILIRUBIN 1+ (Negative)
[2018-10-27 12:34] LABS: AMP/METHAMP Negative (Negative); BARBITURATES Negative (Negative); BENZODIAZEPINES POSITIVE (Negative); COCAINE Negative (Negative); METHADONE Negative (Negative); OPIATES POSITIVE (Negative); PCP Negative (Negative); THC Negative (Negative)
[2018-10-27 12:40] LABS: ABSOLUTE BASOPHILS 0.1 thou/uL (0.0-0.2); ABSOLUTE EOSINOPHILS 0.1 thou/uL (0.0-0.7); ABSOLUTE LYMPHOCYTES 2.1 thou/uL (0.8-5.3); ABSOLUTE MONOCYTES 1.4 thou/uL (0.0-1.2); ABSOLUTE NEUTROPHILS 12.1 thou/uL (1.6-8.1); BASOPHILS 0.6 %; EOSINOPHILS 0.5 %; LYMPHOCYTES 13.6 %; MCH 31.1 pg (26.0-34.0); MCHC 33.8 g/dL (28.0-37.0); MPV 7.6 fl. (7.2-11.1); NUCLEATED RBCS 0 /100WBC; POLYS 76.3 %; RBC 4.24 mil/uL (4.20-5.00); WBC 15.8 thou/uL (4.0-11.0)
[2018-10-27 12:41] LABS: HEMOGLOBIN 13.2 gm/dL (12.0-15.0); PLATELET COUNT* 459 thou/uL (150-400)
[2018-10-27 12:49] LABS: ANION GAP 11 mmol/L (7-16); BUN 8 mg/dL (7-18); CALCIUM 9.8 mg/dL (8.5-10.1); CHLORIDE 93 mmol/L (98-107); CO2 29 mmol/L (21-32); CREATININE 0.7 mg/dL (0.6-1.3); GLUCOSE 123 mg/dL (70-99); POTASSIUM 3.2 mmol/L (3.5-5.1); SODIUM 133 mmol/L (136-145)
[2018-10-27 13:05] LABS: ALBUMIN 3.8 g/dL (3.4-5.0); ALKALINE PHOSPHATASE 197 U/L (46-116); LIPASE 595 U/L (73-393); SGOT 32 U/L (15-37); SGPT 72 U/L (30-65); TOTAL BILIRUBIN 0.5 mg/dL (<0.1-1.0); TOTAL PROTEIN 8.4 g/dL (6.4-8.2); TROPONIN-I LEVEL <0.06 ng/mL (<0.06)
[2018-10-27 15:59] VITALS: BP 156/83
[2018-10-27 16:26] VITALS: BP 174/99
[2018-10-27 17:13] VITALS: BP 173/101
--- NOTE | 2018-10-27 17:27 | NUR ---
PT ADMITTED TO UNIT FOR PANCREATITIS. PT IS UP AD BRYON. PT C/O PAIN AND NAUSEA, MEDS GIVEN ORDERED. PT IS NPO. GI CONSULTED. PT IV FLUIDS DISCONTINUED. FALL RISK PRECAUITONS IN PLACE. HOURLY ROUNDING COMPLETED. WILL CONTINUE TO MONITOR.
[2018-10-27 20:00] VITALS: BP 149/78
[2018-10-28 04:44] LABS: ABSOLUTE BASOPHILS 0.1 thou/uL (0.0-0.2); ABSOLUTE EOSINOPHILS 0.1 thou/uL (0.0-0.7); ABSOLUTE LYMPHOCYTES 2.6 thou/uL (0.8-5.3); ABSOLUTE MONOCYTES 1.5 thou/uL (0.0-1.2); BASOPHILS 0.6 %; EOSINOPHILS 0.8 %; HEMATOCRIT 37.6 % (37.0-47.0); HEMOGLOBIN 12.6 gm/dL (12.0-15.0); LYMPHOCYTES 17.9 %; MCH 31.3 pg (26.0-34.0); MCHC 33.5 g/dL (28.0-37.0); MCV 93.6 fL (80.0-100.0); MONOCYTES 10.8 %; NUCLEATED RBCS 0 /100WBC; PLATELET COUNT* 419 thou/uL (150-400); POLYS 69.9 %; RBC 4.02 mil/uL (4.20-5.00); RDW-CV 14.3 % (10.5-14.5); WBC 14.3 thou/uL (4.0-11.0)
[2018-10-28 04:54] LABS: CALCIUM 8.8 mg/dL (8.5-10.1); CREATININE 0.6 mg/dL (0.6-1.3); POTASSIUM 3.6 mmol/L (3.5-5.1)
--- NOTE | 2018-10-28 04:54 | NUR ---
PATIENT HAS REMAINED WITH FLAT AFFECT, ORIENTED X 4 THROUGHOUT THE SHIFT AND RESTING QUIETLY ON HOURLY ROUNDS. UP TO BR WITH SBA. ADEQUATE URINE OUTPUT. NO EMESIS THIS SHIFT. MEDICATED FOR PAIN AND NAUSEA Q4H. VITAL SIGNS STABLE. MEDS AND IVF'S PER ORDER PROVIDED. HAS BEEN COOPERATIVE WITH CARES/TREATMENT. CONTINUE TO MONITOR.
[2018-10-28 08:00] VITALS: BP 146/94
--- NOTE | 2018-10-28 13:49 | EKG ---
[place] [address] ELECTROCARDIOGRAM REPORT Name: BEN HOLLEY Room: [address] ADM IN .R.#: [id number] Admission: 10/27/18 Attend Phys: Rene Sky MD Discharge: Date of : 71 Report #: [id number] THIS REPORT FOR: //name// [facility] ED Test Date: 2018-10-27 Test Time: 13:12:56 Pat Name: BEN HOLLEY Department: Room: [facility] Gender: F Tool Marker: [facility] : 1975 Requested By: Alen Sheth Order Number: [id number] MD: Wesley Dunlap Measurements Intervals [place] Rate: 69 P: -22 NV: 125 QRS: 26 QRSD: 89 T: 28 QT: 477 QTc: 511 Interpretive Statements Sinus rhythm Prolonged QT interval Compared to ECG 10/22/2018 05:05:22 Prolonged QT interval now present T-wave abnormality no longer present Electronically Signed On 10-28-2018 13:49:40 TEST FACILITY ENGINEER by Wesley Dunlap [email or web address] <ELECTRONICALLY SIGNED> By: Wesley Dunlap MD, [facility] 10/28/18 1349 1312 1312 Wesley Dunlap MD, [facility] /EPI
[2018-10-28 16:00] VITALS: BP 148/80
[2018-10-28 20:30] VITALS: BP 170/99
[2018-10-29 04:20] VITALS: BP 155/94
[2018-10-29 04:20] LABS: ABSOLUTE BASOPHILS 0.1 thou/uL (0.0-0.2); ABSOLUTE EOSINOPHILS 0.1 thou/uL (0.0-0.7); ABSOLUTE LYMPHOCYTES 2.4 thou/uL (0.8-5.3); ABSOLUTE MONOCYTES 1.2 thou/uL (0.0-1.2); ABSOLUTE NEUTROPHILS 6.7 thou/uL (1.6-8.1); BASOPHILS 0.7 %; EOSINOPHILS 1.1 %; HEMATOCRIT 36.8 % (37.0-47.0); HEMOGLOBIN 12.5 gm/dL (12.0-15.0); LYMPHOCYTES 22.6 %; MCH 31.5 pg (26.0-34.0); MCHC 33.9 g/dL (28.0-37.0); MCV 92.7 fL (80.0-100.0); MONOCYTES 11.7 %; MPV 7.8 fl. (7.2-11.1); NUCLEATED RBCS 0 /100WBC; PLATELET COUNT* 374 thou/uL (150-400); POLYS 63.9 %; RBC 3.97 mil/uL (4.20-5.00); RDW-CV 14.3 % (10.5-14.5); WBC 10.6 thou/uL (4.0-11.0)
[2018-10-29 04:39] LABS: ALBUMIN 3.3 g/dL (3.4-5.0); CALCIUM 8.9 mg/dL (8.5-10.1); CREATININE 0.6 mg/dL (0.6-1.3); POTASSIUM 3.1 mmol/L (3.5-5.1); TOTAL BILIRUBIN 0.4 mg/dL (<0.1-1.0); TOTAL PROTEIN 7.2 g/dL (6.4-8.2)
--- NOTE | 2018-10-29 06:16 | NUR ---
PATIENT HAS BEEN VERY ANXIOUS AND RESTLESS DURING THE NIGHT. PATIENT REQUESTING TO TAKE MULTIPLE SHOWERS EVERY COUPLE OF HOURS. VSS ON RA, ALTHOUGH BP ELEVATED. MEDICATIONS GIVEN ORDERED AND CHARTED. PATIENT HAD INCONTINENT EPISODE WHEN SHE STATED THAT SHE WAS NAUSEATED. IV IN RIGHT AC-NS @ 100ML/HR. PATIENT INSTRUCTED TO USE CALL LIGHT WHEN NEEDING ASSISTANCE. HOURLY ROUNDS MADE. WILL CONTINUE WITH PLAN OF CARE AND NURSING TO MONITOR.
[2018-10-29 08:14] VITALS: BP 172/106
[2018-10-29] MEDS ORDERED: NORCO 10-325 T1 EACH PO (11:21)
[2018-10-29 11:23] VITALS: BP 172/106
[2018-10-29 13:42] VITALS: BP 172/106
--- NOTE | 2018-10-29 13:43 | NUR ---
PT GIVEN DISCHARGE INFORMATION, CARE NOTES, AND PRESCRIPTIONS. ZOFRAN PRESCRIPTION CALLED INTO PT PHARMACY. IV REMOVED. PT TOLERATED LUNCH. PT LEFT WITH NURSING STAFF WITH DAUGHTER TO HOME CARE.
== END 2018-10-29 13:44 | disposition home or self-care (01) | DRG 439 ==
LOC: M.ERS 11:42 → M.TBA-ER 14:38 → M.ORTHSURG 14:38
PROVIDERS: Emergency Medicine Emergency Medical Services; ADMIT Internal Medicine
DX: K85.90 Acute pancreatitis without necrosis or infection, unspecified (principal); R65.10 Systemic inflammatory response syndrome (SIRS) of non-infectious origin without acute organ dysfunction; F41.9 Anxiety disorder, unspecified; F32.9 Major depressive disorder, single episode, unspecified; Z96.659 Presence of unspecified artificial knee joint; F17.210 Nicotine dependence, cigarettes, uncomplicated; E86.0 Dehydration; K86.1 Other chronic pancreatitis; E66.01 Morbid (severe) obesity due to excess calories; Z68.37 Body mass index [BMI] 37.0-37.9, adult; Z90.710 Acquired absence of both cervix and uterus; Z88.8 Allergy status to other drugs, medicaments and biological substances; Z79.899 Other long term (current) drug therapy

== ENCOUNTER 2018-12-27 19:51 | Emergency (ER) | payer MEDICAID ==
[~2018-12-27] VITALS: Ht 162.6 cm; Wt 96.2 kg
[~2018-12-27 19:51] MED LIST changes: +NORCO 10-325 T1 EACH PO
[2018-12-27 20:26] LABS: ABSOLUTE BASOPHILS 0.1 thou/uL (0.0-0.2); ABSOLUTE EOSINOPHILS 0.4 thou/uL (0.0-0.7); ABSOLUTE MONOCYTES 0.7 thou/uL (0.0-1.2); ABSOLUTE NEUTROPHILS 7.8 thou/uL (1.6-8.1); BASOPHILS 1.1 %; EOSINOPHILS 2.9 %; HEMOGLOBIN 12.8 gm/dL (12.0-15.0); LYMPHOCYTES 25.3 %; MCH 31.1 pg (26.0-34.0); MCHC 33.7 g/dL (28.0-37.0); MCV 92.4 fL (80.0-100.0); MONOCYTES 5.5 %; MPV 7.1 fl. (7.2-11.1); NUCLEATED RBCS 0 /100WBC; PLATELET COUNT* 424 thou/uL (150-400); POLYS 65.2 %; RBC 4.11 mil/uL (4.20-5.00); RDW-CV 14.5 % (10.5-14.5)
[2018-12-27 20:38] LABS: PROTIME 10.6 Seconds (9.20-11.50)
[2018-12-27 20:45] LABS: ALBUMIN 3.6 g/dL (3.4-5.0); ALKALINE PHOSPHATASE 107 U/L (46-116); ANION GAP 9 mmol/L (7-16); BUN 9 mg/dL (7-18); CALCIUM 9.3 mg/dL (8.5-10.1); CHLORIDE 104 mmol/L (98-107); CO2 25 mmol/L (21-32); CREATININE 0.7 mg/dL (0.6-1.3); GLUCOSE 125 mg/dL (70-99); MAGNESIUM 2.1 mg/dL (1.8-2.4); SGOT 16 U/L (15-37); SGPT 21 U/L (30-65); SODIUM 138 mmol/L (136-145); TOTAL BILIRUBIN 0.2 mg/dL (<0.1-1.0); TOTAL PROTEIN 7.6 g/dL (6.4-8.2); TROPONIN-I LEVEL <0.06 ng/mL (<0.06)
[2018-12-27] MEDS ORDERED: VISTARIL 25 MG25 M1 PO (21:18)
[2018-12-27] MEDS ORDERED: PREMPHASE 0.621 EAC1 PO (21:18)
[2018-12-27] MEDS ORDERED: NEXIUM40 MG PO (21:18)
[2018-12-27] MEDS ORDERED: ONDANSETRON ODT4 MG PO (21:20)
[2018-12-27] MEDS ORDERED: VIIBRYD40 MG PO (21:20)
[2018-12-27 23:44] LABS: URINE BILIRUBIN NEGATIVE (Negative); URINE BLOOD NEGATIVE (Negative); URINE CLARITY CLEAR; URINE COLOR YELLOW; URINE GLUCOSE-RANDOM NEGATIVE (Negative); URINE KETONES NEGATIVE (Negative); URINE LEUKOCYTES-REFLEX NEGATIVE (Negative); URINE NITRITE-REFLEX NEGATIVE (Negative); URINE PROTEIN NEGATIVE (Negative); URINE UROBILINOGEN 0.2 E.U./dl (0.2-1.0)
[2018-12-27 23:49] LABS: AMP/METHAMP Negative (Negative); BARBITURATES Negative (Negative); BENZODIAZEPINES Negative (Negative); COCAINE Negative (Negative); METHADONE Negative (Negative); OPIATES Negative (Negative); PCP Negative (Negative); THC Negative (Negative)
[2018-12-28 00:47] LABS: PCO2 38.7 mmHg (35.0-45.0); PO2 78.4 mmHg (75.0-100.0); pH 7.402 (7.340-7.450)
[2018-12-28 04:23] VITALS: BP 162/85
--- NOTE | 2018-12-28 16:06 | EKG ---
[place] [address] ELECTROCARDIOGRAM REPORT Name: KISHANBEN PERRY Room: [facility]#: [id number] Admission: 12/27/18 Attend Phys: Discharge: 12/28/18 Date of : 71 Report #: [id number] THIS REPORT FOR: //name// [facility] ED Test Date: 2018-12-27 Test Time: 20:09:57 Pat Name: BEN HOLLEY Department: Room: Gender: F Vest Presser: GAMAL : 1975 Requested By: Aurora Sandhu Order Number: [id number] MD: Rustam Laboy Measurements Intervals [place] Rate: 94 P: [place]: QRS: 62 QRSD: 113 T: -29 QT: 437 QTc: 547 Interpretive Statements Probable sinus rhythm Borderline intraventricular conduction delay Low voltage, precordial leads Nonspecific T abnormalities, diffuse leads Prolonged QT interval Compared to ECG 10/27/2018 13:12:56 Low QRS voltage now present T-wave abnormality now present Electronically Signed On 12-28-2018 16:06:45 TIER TRUCK DRIVER by Rustam Laboy [email or web address] <ELECTRONICALLY SIGNED> By: Rustam Laboy MD, [facility] 12/28/18 1606 08 08 Rustam Laboy MD, [facility] /EPI
== END 2018-12-28 04:23 | disposition home or self-care (01) ==
LOC: M.ERS 19:51
PROVIDERS: Emergency Medicine
DX: R41.0 Disorientation, unspecified (principal); T50.905A Adverse effect of unspecified drugs, medicaments and biological substances, initial encounter; Y92.9 Unspecified place or not applicable; F32.9 Major depressive disorder, single episode, unspecified; F41.9 Anxiety disorder, unspecified; Z96.659 Presence of unspecified artificial knee joint; Z90.49 Acquired absence of other specified parts of digestive tract; Z90.710 Acquired absence of both cervix and uterus; F17.210 Nicotine dependence, cigarettes, uncomplicated; Z88.8 Allergy status to other drugs, medicaments and biological substances

== ENCOUNTER 2019-01-10 11:00 | Inpatient (IN) | payer MEDICAID ==
[~2019-01-10] VITALS: Ht 162.6 cm; Wt 96.2 kg
[~2019-01-10 11:00] MED LIST changes: +NEXIUM40 MG PO; +ONDANSETRON ODT4 MG PO; +PREMPHASE 0.621 EAC1 PO; +VIIBRYD40 MG PO
[2019-01-10 11:01] VITALS: BP 156/93
[2019-01-10 11:51] LABS: ABSOLUTE BASOPHILS 0.2 thou/uL (0.0-0.2); ABSOLUTE LYMPHOCYTES 1.5 thou/uL (0.8-5.3); ABSOLUTE MONOCYTES 0.5 thou/uL (0.0-1.2); ABSOLUTE NEUTROPHILS 10.2 thou/uL (1.6-8.1); BASOPHILS 1.2 %; EOSINOPHILS 0.3 %; HEMATOCRIT 38.6 % (37.0-47.0); HEMOGLOBIN 13.1 gm/dL (12.0-15.0); LYMPHOCYTES 12.4 %; MCH 30.9 pg (26.0-34.0); MCHC 34.1 g/dL (28.0-37.0); MCV 90.8 fL (80.0-100.0); MONOCYTES 4.1 %; NUCLEATED RBCS 0 /100WBC; PLATELET COUNT* 415 thou/uL (150-400); RBC 4.25 mil/uL (4.20-5.00); RDW-CV 14.5 % (10.5-14.5); WBC 12.5 thou/uL (4.0-11.0)
[2019-01-10 12:15] LABS: URINE BILIRUBIN NEGATIVE (Negative); URINE BLOOD NEGATIVE (Negative); URINE CLARITY CLEAR; URINE COLOR YELLOW; URINE GLUCOSE-RANDOM NEGATIVE (Negative); URINE KETONES 2+ (Negative); URINE LEUKOCYTES-REFLEX NEGATIVE (Negative); URINE NITRITE-REFLEX NEGATIVE (Negative); URINE PROTEIN NEGATIVE (Negative); URINE SPECIFIC GRAVITY 1.015 (1.005-1.030); URINE UROBILINOGEN 0.2 E.U./dl (0.2-1.0)
[2019-01-10 12:16] LABS: ALBUMIN 3.9 g/dL (3.4-5.0); CALCIUM 9.2 mg/dL (8.5-10.1); CREATININE 0.7 mg/dL (0.6-1.3); POTASSIUM 3.5 mmol/L (3.5-5.1); TOTAL BILIRUBIN 0.4 mg/dL (<0.1-1.0)
[2019-01-10 12:23] LABS: AMP/METHAMP Negative (Negative); BARBITURATES Negative (Negative); COCAINE Negative (Negative); METHADONE Negative (Negative); OPIATES POSITIVE (Negative); PCP Negative (Negative); THC Negative (Negative)
[2019-01-10 12:37] LABS: BENZODIAZEPINES Negative (Negative)
[2019-01-10 14:10] VITALS: BP 150/88
[2019-01-10 18:14] VITALS: BP 155/86
--- NOTE | 2019-01-10 18:39 | NUR ---
PT ARRIVED FROM E.D. BY CART @ 7861. ORIENTED TO ROOM. IV PATENT IN LAC, BUT POSITIONAL. 2ND IV SITE STARTED LFA WITH IVF INFUSING. PT RECEIVED IV ZOFRAN AND MORPHINE FOR NAUSEA AND PAIN CONTROL. HOURLY ROUNDS MAINTAINED. CALL LIGHT WITHIN REACH.
[2019-01-10 20:00] VITALS: BP 129/72
[2019-01-11 04:10] LABS: HEMATOCRIT 34.9 % (37.0-47.0); HEMOGLOBIN 11.7 gm/dL (12.0-15.0); MCH 30.5 pg (26.0-34.0); MCHC 33.5 g/dL (28.0-37.0); MCV 91.1 fL (80.0-100.0); MPV 7.7 fl. (7.2-11.1); RBC 3.83 mil/uL (4.20-5.00); RDW-CV 14.3 % (10.5-14.5); WBC 12.4 thou/uL (4.0-11.0)
[2019-01-11 04:19] LABS: CALCIUM 8.7 mg/dL (8.5-10.1); CREATININE 0.5 mg/dL (0.6-1.3); POTASSIUM 3.5 mmol/L (3.5-5.1); TOTAL BILIRUBIN 0.7 mg/dL (<0.1-1.0); TOTAL PROTEIN 6.5 g/dL (6.4-8.2)
--- NOTE | 2019-01-11 07:41 | NUR ---
Alert and oriented x 4 . Up with stand by assist to bedside commode. She is requesting pain meds every 3 hours and rating pain at 8 or 9. She had nausea med x 2. She has slept well.
[2019-01-11 08:00] VITALS: BP 131/77
[2019-01-11 16:51] VITALS: BP 112/77
--- NOTE | 2019-01-11 17:51 | NUR ---
PT REMAINED A&Ox4 THROUGHOUT SHIFT. VITALS STABLE. NPO EXCEPT FOR MEDS SINCE BREAKFAST. IV IN L FA AND L AC PATENT. PAIN CONTROLLED WITH MORPHINE. DENIED NAUSEA OR VOMITING. UP WITH ASSIST. CALL LIGHT WITHIN REACH. WILL CONTINUE TO MONITOR.
[2019-01-11 19:20] VITALS: BP 112/80
--- NOTE | 2019-01-11 22:22 | NUR ---
INITAL ASSESMENT COMPLETED AT 1919. PT REPORTED ABDOMINAL PAIN RATED AT 9. INFORMED PT NEXT DOSE OF PAIN MEDICATION AVAILABLE AT 2029. AT 2029 PT SLEEPING WITH OU CLOSED. HS MEDS GIVEN AT THAT TIME. PT REPORTED PAIN AND FEELING NAUSEATED. PT GIVEN PRN MORPHINE AND ZOFRAN. PT SLEEPING WITH OU CLOSED SINCE 2099. CALL LIGHT IN REACH. PT DEMONSTRATES PROPER USE. FALL PRECAUTIONS IN PLACE
[2019-01-12 04:02] LABS: HEMATOCRIT 33.9 % (37.0-47.0); HEMOGLOBIN 11.3 gm/dL (12.0-15.0); MCH 30.8 pg (26.0-34.0); MCHC 33.5 g/dL (28.0-37.0); MCV 92.1 fL (80.0-100.0); MPV 7.5 fl. (7.2-11.1); RBC 3.68 mil/uL (4.20-5.00); RDW-CV 14.4 % (10.5-14.5); WBC 8.4 thou/uL (4.0-11.0)
[2019-01-12 04:17] LABS: ALBUMIN 2.9 g/dL (3.4-5.0); CALCIUM 8.7 mg/dL (8.5-10.1); CREATININE 0.6 mg/dL (0.6-1.3); MAGNESIUM 1.9 mg/dL (1.8-2.4); POTASSIUM 3.5 mmol/L (3.5-5.1); TOTAL BILIRUBIN 0.5 mg/dL (<0.1-1.0); TOTAL PROTEIN 6.5 g/dL (6.4-8.2)
--- NOTE | 2019-01-12 05:46 | NUR ---
PT CONTINUES TO HAVE ABDOMINAL PAIN SHE RATES AT 9 TO 10. PT GIVEN 6 MG IV MORPHINE Q 3 HRS PRN. PT NPO EXCEPT FOR MEDS. PT RECIEVING IV FLUIDS. VITAL SIGNS WITHIN NORMAL LIMITS. NO ACUTE CHANGES. WILL CONTINUE PLAN OF CARE.
[2019-01-12 08:00] VITALS: BP 114/71
[2019-01-12 16:31] VITALS: BP 140/71
--- NOTE | 2019-01-12 19:23 | NUR ---
PT REMAINED A&Ox4 THROUGHOUT SHIFT. VITALS STABLE. IV IN L FA PATENT, INFUSING. IV IN L AC PATENT, SL. DIET CHANGED TO FULL LIQUID. MORPHINE DISCONTINUED. COMPLAINED OF N/V AND VOMITED A MINIMAL AMOUNT. NORCO GIVEN FOR PAIN. CALL LIGHT WITHIN REACH. HOURLY ROUNDING COMPLETE.
[2019-01-12 20:30] VITALS: BP 152/70
--- NOTE | 2019-01-12 22:37 | NUR ---
INITAL ASSESMENT COMPLATED AT 2029. PT DRY HEAVING AND LOUDLY WRETCHING AT THAT TIME. PT RECIEVED IV ZOFRAN WITH NO RELIEF. DR ISRAEL ARCOS. RECIEVED ORDERS FOR IV PHENEGAN Q 6 HRS PRN. HS MEDS NOT GIVEN DUE TO SEVERE NAUSEA AND VOMITING.
--- NOTE | 2019-01-13 03:12 | NUR ---
PT RECIEVED IV PHENERGAN WITH GOOD RESULTS. PT SLEEPING WITH OU CLOSED SINCE 2129. ALL MEDS HELD DUS TO SEVERE NAUSEA, VOMITING AND LOUD WRETCHING.
[2019-01-13 04:25] LABS: ABSOLUTE BASOPHILS 0.1 thou/uL (0.0-0.2); ABSOLUTE MONOCYTES 0.6 thou/uL (0.0-1.2); ABSOLUTE NEUTROPHILS 7.9 thou/uL (1.6-8.1); BASOPHILS 0.6 %; EOSINOPHILS 0.2 %; HEMATOCRIT 35.7 % (37.0-47.0); HEMOGLOBIN 12.3 gm/dL (12.0-15.0); LYMPHOCYTES 18.9 %; MCH 31.4 pg (26.0-34.0); MCHC 34.6 g/dL (28.0-37.0); MCV 90.7 fL (80.0-100.0); MPV 7.9 fl. (7.2-11.1); NUCLEATED RBCS 0 /100WBC; PLATELET COUNT* 382 thou/uL (150-400); POLYS 74.3 %; RBC 3.93 mil/uL (4.20-5.00); RDW-CV 14.2 % (10.5-14.5); WBC 10.6 thou/uL (4.0-11.0)
[2019-01-13 04:37] LABS: ANION GAP 12 mmol/L (7-16); BUN 7 mg/dL (7-18); CALCIUM 8.9 mg/dL (8.5-10.1); CHLORIDE 98 mmol/L (98-107); CHOLESTEROL 203 mg/dL (<200); CO2 24 mmol/L (21-32); CREATININE 0.6 mg/dL (0.6-1.3); GLUCOSE 139 mg/dL (70-99); HDL CHOLESTEROL 34 mg/dL (>40); LDL CHOLESTEROL 145 mg/dL (<100); POTASSIUM 3.7 mmol/L (3.5-5.1); SODIUM 134 mmol/L (136-145); TRIGLYCERIDE 121 mg/dL (<150); VLDL 24 mg/dL (<40)
[2019-01-13 04:51] LABS: SERUM ASSESSMENT Clear
--- NOTE | 2019-01-13 06:00 | NUR ---
PT NOT PROGRESSING TOWARD GOALS DURING SHIFT. PT CONTINUES TO HAVE NAUSEA. PT HAD NAUSEA AND VOMITING FROM START OF SHIFT UNTIL 2129. PT NAUSEATED AQGAIN AT 429. IV PHENERGAN ORDERED AND GIVEN AT 2144 AND 429. PT REPORTS ABDOMINAL PAIN BUT AFRAID TO TAKE MEDS DUE TO SEVERE WRETCHING AT START OF SHIFT. NO IV PAIN MEDICATIONS FOR THIS PATIENT. ALL PO MEDS HELD DUE TO NAUSEA AND VOMITING.
--- NOTE | 2019-01-13 07:04 | NUR ---
PT VOMITING CLEAR EMISIS AT 0630. PT GIVEN PRN ZOFRAN IV PUSH. PT ASKED FOR HYDROCODONE. INFORMED PT SHE SHOULD WAIT FOR ZOFRAN TO WORK BEFORE TAKING VICODIN SHE MIGHT THROW UP. PT STATED SHE NEW RISKS BUT HAS SEVERE PAIN RATED AT 10. PT GIVEN ONE HYDROCODONE WITH SMALL AMOUNT OF WATER.
[2019-01-13 08:00] VITALS: BP 176/96
--- NOTE | 2019-01-13 12:00 | NUR ---
PT ACCIDENTALLY PULLED IV IN LEFT FA OUT. IV TO LEFT AC NOT FUNCTIONING AND REMOVED. UNABLE TO OBTAIN ACCESS AFTER MULTIPLE ATTEMPTS. PT TOLERATING PO THIS AM. DR OLMOS PAGED FOR PLAN
--- NOTE | 2019-01-13 15:32 | NUR ---
DR OLMOS AND DR GIBBS AWARE IV IS OUT. OK TO LEAVE OUT IF PT TOLERATING PO
[2019-01-13 16:19] VITALS: BP 145/72
--- NOTE | 2019-01-13 16:32 | NUR ---
PT UP IN ROOM WITH STEADY GAIT. NAUSEA THIS AM RESOLVED. PT TOLERATING CLD WELL. PAIN CONTROLLED WITH PO MEDS.
[2019-01-13 23:00] VITALS: BP 145/81
--- NOTE | 2019-01-14 00:31 | NUR ---
[facility] ASSESMENT COMPETED AT 1929. PT RESTING QUIETLY IN BED AT THAT TIME. PT REPORTED ABDOMINAL PAIN. PRN VICODIN GIVEN WITH HS MEDS. PT TOOK SHOWER AT 2129. PT SLEEPING WITH OU CLOSED AT THIS TIME. CALL LIGHT IN REACH. PT DEMONSTRATES PROPER USE.
--- NOTE | 2019-01-14 00:33 | NUR ---
INITAL ASSESMENT COMPLETED AT 1914. PT ASKED FOR ASSIST WITH URINAL AT THAT TIME. PT PLACED IN REVERSE TRENDELENBURGE FOR GRAITY ASSISTANCE. PT UNABLE TO VOID. PT TRIED AGAIN AT 2099. PT VOIDED 350ML YELLOW CONCENTRATED URINE. BLADDER SCAN SHOWED 100 ML RESIDUAL.
[2019-01-14 04:25] LABS: ABSOLUTE BASOPHILS 0.1 thou/uL (0.0-0.2); ABSOLUTE EOSINOPHILS 0.1 thou/uL (0.0-0.7); ABSOLUTE LYMPHOCYTES 2.7 thou/uL (0.8-5.3); ABSOLUTE MONOCYTES 0.8 thou/uL (0.0-1.2); ABSOLUTE NEUTROPHILS 5.4 thou/uL (1.6-8.1); EOSINOPHILS 1.4 %; HEMATOCRIT 38.5 % (37.0-47.0); LYMPHOCYTES 29.4 %; MCH 30.8 pg (26.0-34.0); MCHC 33.7 g/dL (28.0-37.0); MCV 91.5 fL (80.0-100.0); MPV 7.9 fl. (7.2-11.1); NUCLEATED RBCS 0 /100WBC; PLATELET COUNT* 425 thou/uL (150-400); POLYS 59.2 %; RBC 4.21 mil/uL (4.20-5.00); RDW-CV 14.1 % (10.5-14.5); WBC 9.1 thou/uL (4.0-11.0)
[2019-01-14 04:34] LABS: CALCIUM 9.5 mg/dL (8.5-10.1); CREATININE 0.7 mg/dL (0.6-1.3); POTASSIUM 3.1 mmol/L (3.5-5.1)
--- NOTE | 2019-01-14 07:01 | NUR ---
NO VOMITONG DURING SHIFT. PT TAKING CLEAR LIQUIDS WITHOUT VOMITING. PT GIVEN PO PAIN AND NAUSEA MEDS WITH GOOD RELIEF. VITAL SIGNS WITHIN NORMAL LIMITS. WILL CONTINUE PLAN OF CARE.
[2019-01-14 08:00] VITALS: BP 184/108
[2019-01-14] MEDS ORDERED: AMITRIPTYLINE H25 M2 PO (10:59)
[2019-01-14] MEDS ORDERED: TRANSDERM-SCOP1 EACH TRANSDERM (11:00)
[2019-01-14] MEDS ORDERED: PANCRELIPASE PO (11:00)
[2019-01-14] MEDS ORDERED: SENNA PLUS TAB1 EACH PO (11:01)
[2019-01-14] MEDS ORDERED: LISINOPRIL40 MG PO (11:05)
--- NOTE | 2019-01-14 11:36 | NUR ---
PT ALERT AND ORIENTED X 4. UNABLE TO TAKE PO POTASSIUM REPLACEMENT. ONLY TOOK 1 TABLET EARLIER IN AM FOR LINING BASTER. EMESIS X 1 DUE TO POTASSIUM @ 830. PT GIVEN CRUSHED POTASSIUM 2 TABS PO IN VANILLA PUDDING. TOLERATED WELL. NO IV SITE. RECEIVED PO MEDICATION FOR NAUSEA AND ABDOMINAL PAIN PER ORDER. PHYSICIAN NOTIFIED ABOUT ELEVATED BLOOD PRESSURE. RECEIVED ORDER FOR LISINOPRIL 40MG PO X 1. PT UP IN ROOM AD BRYON. HOURLY ROUNDS MAINTAINED. CALL LIGHT WITHIN REACH.
[2019-01-14 12:03] VITALS: BP 177/108
[2019-01-14 12:35] VITALS: BP 177/108
--- NOTE | 2019-01-14 12:37 | NUR ---
PT GIVEN DISCHARGE INSTRUCTIONS AND PRESCRIPTIONS. NO IV ACCESS AT THIS TIME. PT LEFT @ 1235 WITH NURSING STAFF. PT ABLE TO AMBULATE WHEN LEAVING UNIT WITH PERSONAL BELONGINGS TO LEAVE BY PRIVATE CAR.
--- NOTE | 2019-01-15 18:49 | CON ---
[address] [address] CONSULTATION Name: BEN HOLLEY Room: [address] IN M.R.#: [id number] Admission: 01/10/19 Attend Phys: Yasir Madsen MD Discharge: 01/14/19 Date of : 71 Report #: [id number] THIS REPORT FOR: //name// CC: Yasir Sanchez MD DICTATED BY: Katherine Jarvis [facility] DATE OF SERVICE: 01/13/2019 Please note at the time of this dictation, the patient was seen and physically examined by myself. REASON FOR CONSULTATION: Recurrent pancreatitis. HISTORY OF PRESENT ILLNESS: This is a 43-year-old female who presented to the Emergency Room with worsening of her epigastric pain with onset over the last couple of days. She has also over the last 24 hours prior to admission was having a lot of nausea and vomiting and unable to keep anything down. The patient has been hospitalized in June due to her pancreatitis. She underwent an EUS in 07/[address] Donovan and had noted idiopathic chronic pancreatitis. She also then subsequently was admitted at the end of September for similar and underwent an EGD and colonoscopy. EGD showed some mild reactive gastropathy, otherwise negative colon, had a rectal polyp that was hyperplastic, otherwise negative. The patient was started on Elavil at that time. She has not been on any pancreatic enzymes as well. She was last seen in the office in October of this year. She has taken medications for her cholesterol in the past as well. She does have a remote history of some alcohol, but she states prior to June, she has not had any alcohol whatsoever. She states prior to that every couple of months, she may have a drink or two. Also, the patient states she has not started on any new medications since all of these events have been occurring since last June. ALLERGIES: ZOLOFT, LYRICA, GABAPENTIN, SEROQUEL, TRAMADOL, TORADOL, DEPAKOTE AND ABILIFY. MEDICATIONS FROM HOME: Include Vistaril, Nexium, Premphase, , Tegretol and buspirone. PAST MEDICAL HISTORY: Pancreatitis, mental health, depression with psychotic episodes, anxiety. PAST SURGICAL HISTORY: Cholecystectomy, hysterectomy and knee replacement. FAMILY HISTORY: [place] [address] CONSULTATION Name: BEN HOLLEY Room: [address]#: [id number] Admission: 01/10/19 Attend Phys: Yasir Madsen MD Discharge: 01/14/19 Date of : 71 Report #: [id number] SOCIAL HISTORY: The patient continues to smoke, alcohol remote use, recreational drug use in the past. REVIEW OF SYSTEMS: Twelve-point review of systems is essentially negative except what is mentioned in the HPI. PHYSICAL EXAMINATION: VITAL SIGNS: Temperature 36.7, pulse 76, respirations 16, blood pressure 176/96. HEART: Regular rate and rhythm. LUNGS: Clear. ABDOMEN: Soft, positive bowel sounds in all 4 quadrants with tenderness noted in the epigastric area. LABORATORY DATA: Hemoglobin 12.3, white count is 10.6, platelets 382. Lipase on admission was 5851. She is currently downtrended to 591 and that was yesterday. Cholesterol was 203, triglycerides 121, LDL 145, HDL 34. Her GFR was 108, total bilirubin 0.5, alkaline phosphatase 136, ALT 60, AST 71. Urine drug screen was positive for opioids, but negative for alcohol or THC. IMPRESSION: 1. Abdominal pain. 2. Acute on chronic pancreatitis. 3. Nausea and vomiting. PLAN: 1. Scopolamine patch to help with the nausea and vomiting. 2. Continue her fluids. 3. Clear liquid diet. 4. Amitriptyline 50 mg at bedtime. 5. Pancrelipase 25,000 two tablets with meals and one with snacks, script on the chart to see if case management could check into and see what the cost would be for the patient. 6. We will await above measures to see how they affect her and make further recommendations at that time. Thank you for allowing us to participate in this patient's care. Please do not hesitate to call with any questions in regard to this consult. <ELECTRONICALLY SIGNED> By: Darrell Reyes DO 01/15/19 1849 1113 Darrell Reyes DO /nt
--- NOTE | 2019-01-15 18:49 | CON ---
[address] [address] CONSULTATION Name: BEN HOLLEY Room: [address] IN M.R.#: [id number] Admission: 01/10/19 Attend Phys: Yasir Madsen MD Discharge: 01/14/19 Date of : 71 Report #: [id number] THIS REPORT FOR: //name// CC: DOMENICA Sanchez DATE OF SERVICE: 01/13/2019 ADDENDUM TO JOB NUMBER [id number]. REFERRING PHYSICIAN: Dr. Yasir Madsen. I have seen and examined her and agree with plan that has been outlined by our nurse practitioner, Katherine Jarvis. The patient is a pleasant 43-year-old white female with presumed idiopathic recurrent pancreatitis who was admitted to hospital for the third time in the last 6 months with complaints of recurrent abdominal pain associated with nausea, vomiting and findings compatible with acute pancreatitis. She has undergone extensive evaluation by my partner, Dr. Donovan, including an endoscopic ultrasound, which revealed evidence for chronic pancreatitis with hyperechoic stranding and inflammatory change with a common bile duct of only 6 mm. She does not have any history of any significant alcohol intake or any family history of pancreatitis. In reviewing her records, her only medication that is possibly suspect is Tegretol, but it is class 3 with regards to possible etiology for the same. She has history of hypercholesterolemia and hypertriglyceridemia. In any event, she is admitted to hospital with recurrent problems and requiring IV fluids and pain medications. I reviewed her CT scans that have been done over the last several months and while she has had some problem with mild peripancreatic stranding, there is nothing to suggest pancreatic necrosis or anything other than interstitial pancreatitis. In addition, the common bile duct is not dilated on CT scan and she has already had her gallbladder removed. She has, however, had mildly elevated LFTs, which may be related to pancreatitis or could be a sign that she has sphincter of Oddi dysfunction, (DIMPLE type 1). As such, she may benefit from an ERCP with biliary and/or pancreatic sphincterotomy by my partner, Dr. Donovan, to see if this would help decrease the risk of recurrent pancreatitis. In addition, she may benefit from an endoscopic ultrasound with celiac axis block as well. In the interim, however, we will get her over this bout of pancreatitis and probably arrange of these things to be done in the next 4-6 weeks as an outpatient at [facility]. Lastly, we will also see if she would qualify for patient assistance program for some type of pancreatic enzyme and in the interim, we can [place] [address] CONSULTATION Name: KISHANBEN Room: [address] IN M.R.#: [id number] Admission: 01/10/19 Attend Phys: Yasir Madsen MD Discharge: 01/14/19 Date of : 71 Report #: [id number] take to see if this would help with the biofeedback inhibition of her pancreas and prevent recurrent pancreatitis. I have discussed the plans with the patient as well and she is agreeable to the same. <ELECTRONICALLY SIGNED> By: Darrell Reyes DO 01/15/19 1849 1214 2314Darrell Reyes DO /nt
== END 2019-01-14 12:35 | disposition home or self-care (01) | DRG 439 ==
LOC: M.ERS 11:00 → M.ORTHSURG 13:01 → M.TBA-ER 13:01 → M.ORTHSURG 13:41
PROVIDERS: Family Medicine; Personal Emergency Response Attendant; ADMIT Internal Medicine
DX: K85.90 Acute pancreatitis without necrosis or infection, unspecified (principal); R65.10 Systemic inflammatory response syndrome (SIRS) of non-infectious origin without acute organ dysfunction; F32.9 Major depressive disorder, single episode, unspecified; Z96.659 Presence of unspecified artificial knee joint; F41.1 Generalized anxiety disorder; F17.210 Nicotine dependence, cigarettes, uncomplicated; E86.9 Volume depletion, unspecified; K59.00 Constipation, unspecified; I10 Essential (primary) hypertension; Z90.710 Acquired absence of both cervix and uterus; Z88.8 Allergy status to other drugs, medicaments and biological substances; Z90.49 Acquired absence of other specified parts of digestive tract; Z79.899 Other long term (current) drug therapy

== ENCOUNTER 2019-01-22 09:14 | Emergency (ER) | payer MEDICAID ==
[~2019-01-22] VITALS: Ht 162.6 cm; Wt 88.5 kg
[~2019-01-22 09:14] MED LIST changes: +AMITRIPTYLINE H25 M2 PO; +LISINOPRIL40 MG PO; +PANCRELIPASE PO; +SENNA PLUS TAB1 EACH PO; +TRANSDERM-SCOP1 EACH TRANSDERM
[2019-01-22] MEDS ORDERED: HYDROXYZINE PAM50 MG PO (09:25)
[2019-01-22] MEDS ORDERED: CARBAMAZEPINE100 MG PO (09:25)
[2019-01-22] MEDS ORDERED: ZANAFLEX4 MG PO (09:25)
[2019-01-22 09:55] LABS: ABSOLUTE BASOPHILS 0.1 thou/uL (0.0-0.2); ABSOLUTE EOSINOPHILS 0.4 thou/uL (0.0-0.7); ABSOLUTE LYMPHOCYTES 2.8 thou/uL (0.8-5.3); ABSOLUTE MONOCYTES 0.8 thou/uL (0.0-1.2); ABSOLUTE NEUTROPHILS 4.6 thou/uL (1.6-8.1); EOSINOPHILS 4.4 %; HEMOGLOBIN 12.4 gm/dL (12.0-15.0); LYMPHOCYTES 32.4 %; MCH 30.8 pg (26.0-34.0); MCHC 34.4 g/dL (28.0-37.0); MCV 89.5 fL (80.0-100.0); MONOCYTES 8.9 %; MPV 7.3 fl. (7.2-11.1); NUCLEATED RBCS 0 /100WBC; PLATELET COUNT* 426 thou/uL (150-400); POLYS 53.3 %; RBC 4.02 mil/uL (4.20-5.00); WBC 8.6 thou/uL (4.0-11.0)
[2019-01-22 10:12] LABS: ALBUMIN 3.7 g/dL (3.4-5.0); CALCIUM 9.2 mg/dL (8.5-10.1); CREATININE 0.7 mg/dL (0.6-1.3); POTASSIUM 4.2 mmol/L (3.5-5.1); TOTAL BILIRUBIN 0.1 mg/dL (<0.1-1.0); TOTAL PROTEIN 7.6 g/dL (6.4-8.2)
[2019-01-22 10:20] LABS: URINE BILIRUBIN NEGATIVE (Negative); URINE BLOOD NEGATIVE (Negative); URINE CLARITY CLEAR; URINE COLOR YELLOW; URINE GLUCOSE-RANDOM NEGATIVE (Negative); URINE KETONES NEGATIVE (Negative); URINE LEUKOCYTES-REFLEX NEGATIVE (Negative); URINE NITRITE-REFLEX NEGATIVE (Negative); URINE PROTEIN NEGATIVE (Negative); URINE UROBILINOGEN 0.2 E.U./dl (0.2-1.0)
[2019-01-22] MEDS ORDERED: HYDROCODON-ACE1 EAC7 PO (10:25)
[2019-01-22 10:34] VITALS: BP 132/88
== END 2019-01-22 10:35 | disposition home or self-care (01) ==
LOC: M.ERS 09:14
PROVIDERS: Emergency Medicine
DX: S83.8X2A Sprain of other specified parts of left knee, initial encounter (principal); S83.8X1A Sprain of other specified parts of right knee, initial encounter; M13.862 Other specified arthritis, left knee; M13.861 Other specified arthritis, right knee; F32.9 Major depressive disorder, single episode, unspecified; F17.210 Nicotine dependence, cigarettes, uncomplicated; Z90.710 Acquired absence of both cervix and uterus; Z88.6 Allergy status to analgesic agent; Z88.8 Allergy status to other drugs, medicaments and biological substances; W18.39XA Other fall on same level, initial encounter; Y93.89 Activity, other specified; Y92.89 Other specified places as the place of occurrence of the external cause; Y99.8 Other external cause status

== ENCOUNTER 2019-06-20 11:36 | Emergency (ER) | payer MEDICAID ==
[~2019-06-20] VITALS: Ht 162.6 cm; Wt 102.5 kg
[~2019-06-20 11:36] MED LIST changes: +CARBAMAZEPINE100 MG PO; +HYDROXYZINE PAM50 MG PO; +ZANAFLEX4 MG PO
[2019-06-20] MEDS ORDERED: ZENPEP DR 10,01 EACH PO (11:49)
[2019-06-20] MEDS ORDERED: PROZAC10 MG PO (11:50)
[2019-06-20] MEDS ORDERED: VISTARIL 25 MG25 M1 PO (11:50)
[2019-06-20] MEDS ORDERED: OXYCONTIN15 MG PO (11:51)
[2019-06-20] MEDS ORDERED: REGLAN 10 MG TA10 MG PO ×2 (11:53→12:43)
[2019-06-20 12:08] LABS: HEMOGLOBIN 11.7 gm/dL (12.0-15.0); MCH 29.2 pg (26.0-34.0); MCHC 33.5 g/dL (28.0-37.0); MCV 87.1 fL (80.0-100.0); MPV 6.9 fl. (7.2-11.1); NUCLEATED RBCS 0 /100WBC; PLATELET COUNT* 315 thou/uL (150-400); RBC 4.02 mil/uL (4.20-5.00); RDW-CV 16.3 % (10.5-14.5); WBC 8.4 thou/uL (4.0-11.0)
[2019-06-20 12:12] LABS: URINE BILIRUBIN NEGATIVE (Negative); URINE BLOOD NEGATIVE (Negative); URINE CLARITY CLEAR; URINE COLOR YELLOW; URINE GLUCOSE-RANDOM NEGATIVE (Negative); URINE KETONES NEGATIVE (Negative); URINE LEUKOCYTES-REFLEX NEGATIVE (Negative); URINE NITRITE-REFLEX NEGATIVE (Negative); URINE PROTEIN NEGATIVE (Negative); URINE SPECIFIC GRAVITY >= 1.030 (1.005-1.030); URINE UROBILINOGEN 0.2 E.U./dl (0.2-1.0)
[2019-06-20 12:23] LABS: AMP/METHAMP Negative (Negative); BARBITURATES Negative (Negative); BENZODIAZEPINES Negative (Negative); COCAINE Negative (Negative); METHADONE Negative (Negative); OPIATES Negative (Negative); PCP Negative (Negative); THC Negative (Negative)
[2019-06-20 12:29] LABS: ANION GAP 13 mmol/L (7-16); BUN 12 mg/dL (7-18); CALCIUM 8.3 mg/dL (8.5-10.1); CHLORIDE 103 mmol/L (98-107); CO2 22 mmol/L (21-32); CREATININE 0.8 mg/dL (0.6-1.3); GLUCOSE 159 mg/dL (70-99); POTASSIUM 3.9 mmol/L (3.5-5.1); SODIUM 138 mmol/L (136-145)
[2019-06-20 12:38] LABS: ALBUMIN 3.4 g/dL (3.4-5.0); ALKALINE PHOSPHATASE 102 U/L (46-116); LIPASE 188 U/L (73-393); SGOT 20 U/L (15-37); SGPT 24 U/L (30-65); TOTAL PROTEIN 7.4 g/dL (6.4-8.2); TROPONIN-I LEVEL <0.06 ng/mL (<0.06)
[2019-06-20 12:58] LABS: TOTAL BILIRUBIN < 0.1 mg/dL (<0.1-1.0)
[2019-06-20] MEDS ORDERED: PERCOCET PO (13:21)
[2019-06-20 13:35] LABS: ABSOLUTE BASOPHILS 0.1 thou/uL (0.0-0.2); ABSOLUTE EOSINOPHILS 0.7 thou/uL (0.0-0.7); ABSOLUTE LYMPHOCYTES 2.9 thou/uL (0.8-5.3); ABSOLUTE MONOCYTES 0.3 thou/uL (0.0-1.2); ABSOLUTE NEUTROPHILS 4.4 thou/uL (1.6-8.1); ATYPICAL LYMPHS 2 %
[2019-06-20 13:36] LABS: HYPOCHROMASIA 1+; MICROCYTES 1+; PLATELET ESTIMATE ADEQUATE; TOXIC GRANULATION 1+
[2019-06-20 13:49] VITALS: BP 138/86
--- NOTE | 2019-06-21 08:42 | EKG ---
[place] [address] ELECTROCARDIOGRAM REPORT Name: BEN HOLLEY Room: [facility]#: [id number] Admission: 06/20/19 Attend Phys: Discharge: 06/20/19 Date of : 71 Report #: [id number] THIS REPORT FOR: //name// 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1975 Requested By: Candy Wilcox Order Number: [id number] MD: Wesley Dunlap Measurements Intervals [place] Rate: 97 P: -10 NM: 148 QRS: 56 QRSD: 92 T: 21 QT: 398 QTc: 506 Interpretive Statements Sinus rhythm Low voltage, precordial leads Borderline T abnormalities, anterior leads Borderline prolonged QT interval Compared to ECG 12/27/2018 20:09:57 No significant changes Electronically Signed On 06-21-2019 8:41:42 CDT by Wesley Dunlap [email or web address] <ELECTRONICALLY SIGNED> By: Wesley Dunlap MD, [facility] 06/21/19 0841 1209 Wesley Dunlap MD, [facility] /EPI
== END 2019-06-20 13:45 | disposition home or self-care (01) ==
LOC: M.ERS 11:36
PROVIDERS: Nurse Practitioner Family
DX: K86.1 Other chronic pancreatitis (principal); K76.0 Fatty (change of) liver, not elsewhere classified; R11.2 Nausea with vomiting, unspecified; F41.9 Anxiety disorder, unspecified; F32.9 Major depressive disorder, single episode, unspecified; F17.210 Nicotine dependence, cigarettes, uncomplicated; Z88.6 Allergy status to analgesic agent; Z88.8 Allergy status to other drugs, medicaments and biological substances; Z90.710 Acquired absence of both cervix and uterus; Z96.659 Presence of unspecified artificial knee joint; Z79.899 Other long term (current) drug therapy

== ENCOUNTER 2019-07-19 08:55 | Emergency (ER) | payer MEDICAID ==
[~2019-07-19] VITALS: Ht 162.6 cm; Wt 97.5 kg
[~2019-07-19 08:55] MED LIST changes: +OXYCONTIN15 MG PO; +PERCOCET PO; +PROZAC10 MG PO; +REGLAN 10 MG TA10 MG PO; +ZENPEP DR 10,01 EACH PO
[2019-07-19] MEDS ORDERED: NORCO 5-325 TA1 EAC1 PO (10:04)
[2019-07-19 10:10] VITALS: BP 126/96
== END 2019-07-19 10:13 | disposition home or self-care (01) ==
LOC: M.ERS 08:55
DX: S86.811A Strain of other muscle(s) and tendon(s) at lower leg level, right leg, initial encounter (principal); F17.210 Nicotine dependence, cigarettes, uncomplicated; F32.9 Major depressive disorder, single episode, unspecified; K86.1 Other chronic pancreatitis; F41.9 Anxiety disorder, unspecified; Z88.8 Allergy status to other drugs, medicaments and biological substances; Z88.6 Allergy status to analgesic agent; Z90.710 Acquired absence of both cervix and uterus; Z96.659 Presence of unspecified artificial knee joint; Z90.49 Acquired absence of other specified parts of digestive tract; X50.1XXA Overexertion from prolonged static or awkward postures, initial encounter; Y92.89 Other specified places as the place of occurrence of the external cause; Y93.89 Activity, other specified; Y99.8 Other external cause status

== ENCOUNTER 2019-07-20 02:03 | Inpatient (IN) | payer MEDICAID ==
[~2019-07-20] VITALS: Ht 162.6 cm; Wt 99.8 kg
--- NOTE | ~2019-07-20 | CON ---
[address] [address] CONSULTATION Name: KISHANBEN VICKY Room: [address] IN M.R.#: [id number] Admission: 07/20/19 Attend Phys: Rene Sky MD Discharge: Date of : 71 Report #: [id number] THIS REPORT FOR: //name// CC: Rene Sky [facility] physician/PCP Fady Sanchez MD DICTATED BY: Katherine Jarvis [facility] DATE OF SERVICE: 07/21/2019 Please note at the time of this dictation, the patient was seen and physically examined by myself. REASON FOR CONSULTATION: Recurrent pancreatitis. HISTORY OF PRESENT ILLNESS: This 43-year-old female who is well known to our practice who recently cell Dr. Donovan on the in our office for followup since she had her EUS with her celiac plexus block back in January. At first, she did not notice that it was helping; however, until this bout of pancreatitis, she did realize that it had been helping more than what she had thought. When she was seen in the office, he wanted her to do a stool pancreatic elastase. She has not done so; we will attempt to obtain that while she is here in the office. She also had an ERCP and sphincterotomy was not able to be performed at that time. She states her symptoms started on Friday with some nausea and vomiting and with the starting of the pain, which prompted her to come in to be seen. She continues to not have any alcohol since the beginning of the year. She also has issues with some constipation that has been addressed as well. She has been taking her pancreatic enzymes at home on a fairly regular basis. ALLERGIES: ZOLOFT, ABILIFY, DEPAKOTE, TORADOL, SEROQUEL, GABAPENTIN AND LYRICA. MEDICATIONS: From home include Nexium, Premphase, Zofran, Zanaflex, Zenpep, Vistaril, Prozac, OxyContin, Reglan p.r.n., Tegretol and buspirone. PAST MEDICAL HISTORY: Chronic pancreatitis, anxiety, depression. PAST SURGICAL HISTORY: Cholecystectomy, hysterectomy and total knee replacement. FAMILY HISTORY: Mother has MS. SOCIAL HISTORY: History of IV drug use 20 years ago, none recently. Alcohol, last drink was New Year's Asha, but occasionally every 3-6 months for special occasion. Smoking, 09-[id number]-[place] [address] CONSULTATION Name: BEN HOLLEY Room: [address]#: [id number] Admission: 07/20/19 Attend Phys: Rene Sky MD Discharge: Date of : 71 Report #: [id number] REVIEW OF SYSTEMS: Twelve-point review of systems is essentially negative except what is mentioned in the HPI. PHYSICAL EXAMINATION: VITAL SIGNS: Temperature 37.1, pulse 91, respirations 16, blood pressure 161/100. HEART: Regular rate and rhythm. LUNGS: Clear. ABDOMEN: Soft, positive bowel sounds in all 4 quadrants with tenderness noted in the upper quadrants. LABORATORY DATA: Hemoglobin 12.3, white count is 13.2, platelets 305, GFR is 108. CT showed some peripancreatic stranding and a fatty liver. Also noted her lipase was only at around 1000 on admission. IMPRESSION: 1. Recurrent chronic pancreatitis, acute. 2. Fatty liver disease. 3. Nausea and vomiting, which is improved. 4. Constipation. 5. Leukocytosis. PLAN: 1. We will keep her IV fluids going at 250. 2. Ice chips p.r.n. 3. We will try to collect a stool pancreatic elastase. 4. We will continue her pancreatic enzymes. 5. We will evaluate and see how she does with the above and further recommendations to be made at that time. Thank you for allowing us to participate in this patient's care. Please do not hesitate to call with any questions in regard to this consult. By: 1319 2340Darrell Reyes DO /mera
[~2019-07-20 02:03] MED LIST changes: +NORCO 5-325 TA1 EAC1 PO
[2019-07-20 02:05] VITALS: BP 155/97
[2019-07-20 02:19] LABS: MPV 6.8 fl. (7.2-11.1); NUCLEATED RBCS 0 /100WBC; RDW-CV 16.2 % (10.5-14.5); WBC 9.8 thou/uL (4.0-11.0)
[2019-07-20 02:21] LABS: ABSOLUTE BASOPHILS 0.1 thou/uL (0.0-0.2); ABSOLUTE EOSINOPHILS 0.5 thou/uL (0.0-0.7); ABSOLUTE LYMPHOCYTES 3.2 thou/uL (0.8-5.3); ABSOLUTE MONOCYTES 0.8 thou/uL (0.0-1.2); ABSOLUTE NEUTROPHILS 5.2 thou/uL (1.6-8.1); BASOPHILS 1.1 %; EOSINOPHILS 5.6 %; HEMATOCRIT 37.2 % (37.0-47.0); HEMOGLOBIN 12.8 gm/dL (12.0-15.0); LYMPHOCYTES 32.1 %; MCH 28.9 pg (26.0-34.0); MCHC 34.3 g/dL (28.0-37.0); MCV 84.1 fL (80.0-100.0); MONOCYTES 8.2 %; PLATELET COUNT* 352 thou/uL (150-400); RBC 4.42 mil/uL (4.20-5.00)
[2019-07-20 02:26] LABS: ANION GAP 13 mmol/L (7-16); BUN 15 mg/dL (7-18); CALCIUM 9.1 mg/dL (8.5-10.1); CHLORIDE 103 mmol/L (98-107); CO2 21 mmol/L (21-32); CREATININE 0.8 mg/dL (0.6-1.3); GLUCOSE 136 mg/dL (70-99); POTASSIUM 4.3 mmol/L (3.5-5.1); SODIUM 137 mmol/L (136-145)
[2019-07-20 02:35] LABS: ALBUMIN 3.7 g/dL (3.4-5.0); ALKALINE PHOSPHATASE 101 U/L (46-116); LIPASE 1000 U/L (73-393); SGOT 15 U/L (15-37); SGPT 27 U/L (30-65); TOTAL BILIRUBIN 0.2 mg/dL (<0.1-1.0); TOTAL PROTEIN 7.8 g/dL (6.4-8.2); TROPONIN-I LEVEL <0.06 ng/mL (<0.06)
[2019-07-20 03:19] LABS: URINE BILIRUBIN NEGATIVE (Negative); URINE BLOOD NEGATIVE (Negative); URINE CLARITY CLEAR; URINE COLOR YELLOW; URINE GLUCOSE-RANDOM NEGATIVE (Negative); URINE KETONES NEGATIVE (Negative); URINE LEUKOCYTES-REFLEX NEGATIVE (Negative); URINE NITRITE-REFLEX NEGATIVE (Negative); URINE PROTEIN NEGATIVE (Negative); URINE SPECIFIC GRAVITY 1.015 (1.005-1.030); URINE UROBILINOGEN 0.2 E.U./dl (0.2-1.0)
[2019-07-20 09:18] VITALS: BP 151/89
[2019-07-20 09:25] VITALS: BP 163/95
[2019-07-20 16:07] VITALS: BP 172/106
--- NOTE | 2019-07-20 16:54 | EKG ---
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[place] : 1975 Requested By: Sohail aMy Order Number: [id number] MD: Amadou Crouch Measurements Intervals [place] Rate: 91 P: -19 ME: 143 QRS: 56 QRSD: 100 T: 66 QT: 401 QTc: 494 Interpretive Statements Sinus rhythm Low voltage, precordial leads Borderline T abnormalities, anterior leads Borderline prolonged QT interval Compared to ECG 06/20/2019 12:09:17 No significant changes Electronically Signed On 07-20-2019 16:54:16 CDT by Amadou Crouch [email or web address] <ELECTRONICALLY SIGNED> By: Amadou Crouch MD, FACC 07/20/19 1654 Amadou Crouch MD, [facility] /EPI
[2019-07-20 20:23] VITALS: BP 168/81
[2019-07-21 03:42] LABS: ABSOLUTE BASOPHILS 0.1 thou/uL (0.0-0.2); ABSOLUTE EOSINOPHILS 0.2 thou/uL (0.0-0.7); ABSOLUTE LYMPHOCYTES 2.6 thou/uL (0.8-5.3); ABSOLUTE NEUTROPHILS 9.4 thou/uL (1.6-8.1); BASOPHILS 0.6 %; EOSINOPHILS 1.4 %; HEMATOCRIT 36.7 % (37.0-47.0); HEMOGLOBIN 12.3 gm/dL (12.0-15.0); LYMPHOCYTES 19.6 %; MCHC 33.5 g/dL (28.0-37.0); MCV 83.6 fL (80.0-100.0); MONOCYTES 7.4 %; MPV 6.8 fl. (7.2-11.1); NUCLEATED RBCS 0 /100WBC; PLATELET COUNT* 385 thou/uL (150-400); RBC 4.39 mil/uL (4.20-5.00); RDW-CV 15.9 % (10.5-14.5); WBC 13.2 thou/uL (4.0-11.0)
[2019-07-21 04:07] LABS: ALBUMIN 3.4 g/dL (3.4-5.0); CALCIUM 8.4 mg/dL (8.5-10.1); CREATININE 0.6 mg/dL (0.6-1.3); POTASSIUM 3.4 mmol/L (3.5-5.1); TOTAL BILIRUBIN 0.3 mg/dL (<0.1-1.0); TOTAL PROTEIN 7.2 g/dL (6.4-8.2)
[2019-07-21 07:20] VITALS: BP 160/101
[2019-07-21 15:32] VITALS: BP 124/93
[2019-07-21] MEDS ORDERED: REMERON15 MG PO (17:35)
[2019-07-21 20:00] VITALS: BP 160/94
[2019-07-22 11:55] LABS: ABSOLUTE BASOPHILS 0.1 thou/uL (0.0-0.2); ABSOLUTE EOSINOPHILS 0.4 thou/uL (0.0-0.7); ABSOLUTE LYMPHOCYTES 2.9 thou/uL (0.8-5.3); ABSOLUTE MONOCYTES 0.8 thou/uL (0.0-1.2); ABSOLUTE NEUTROPHILS 6.3 thou/uL (1.6-8.1); BASOPHILS 0.8 %; EOSINOPHILS 3.9 %; HEMOGLOBIN 11.5 gm/dL (12.0-15.0); LYMPHOCYTES 27.5 %; MCH 28.5 pg (26.0-34.0); MCV 83.7 fL (80.0-100.0); MONOCYTES 7.7 %; MPV 6.6 fl. (7.2-11.1); NUCLEATED RBCS 0 /100WBC; PLATELET COUNT* 330 thou/uL (150-400); POLYS 60.1 %; RBC 4.06 mil/uL (4.20-5.00); WBC 10.5 thou/uL (4.0-11.0)
[2019-07-22 12:08] LABS: ALBUMIN 3.2 g/dL (3.4-5.0); CALCIUM 8.3 mg/dL (8.5-10.1); CREATININE 0.7 mg/dL (0.6-1.3); TOTAL BILIRUBIN 0.3 mg/dL (<0.1-1.0); TOTAL PROTEIN 6.9 g/dL (6.4-8.2)
== END 2019-07-22 13:35 | disposition left against medical advice (07) | DRG 440 ==
LOC: M.ERS 02:03 → M.3W 06:01 → M.TBA-ER 06:01 → M.3W 06:01
PROVIDERS: Family Medicine; Internal Medicine; ADMIT Internal Medicine
DX: K85.90 Acute pancreatitis without necrosis or infection, unspecified (principal); F41.1 Generalized anxiety disorder; Z96.659 Presence of unspecified artificial knee joint; F32.9 Major depressive disorder, single episode, unspecified; K76.0 Fatty (change of) liver, not elsewhere classified; K59.00 Constipation, unspecified; D72.829 Elevated white blood cell count, unspecified; G43.909 Migraine, unspecified, not intractable, without status migrainosus; F17.210 Nicotine dependence, cigarettes, uncomplicated; F14.90 Cocaine use, unspecified, uncomplicated; F41.9 Anxiety disorder, unspecified; R16.0 Hepatomegaly, not elsewhere classified; Z53.21 Procedure and treatment not carried out due to patient leaving prior to being seen by health care provider; Z79.899 Other long term (current) drug therapy; Z88.8 Allergy status to other drugs, medicaments and biological substances; Z71.6 Tobacco abuse counseling; Z90.49 Acquired absence of other specified parts of digestive tract; Z90.710 Acquired absence of both cervix and uterus; Z82.0 Family history of epilepsy and other diseases of the nervous system

== ENCOUNTER 2019-07-25 06:55 | Inpatient (IN) | payer MEDICAID ==
[~2019-07-25] VITALS: Ht 162.6 cm; Wt 45.4 kg
[~2019-07-25 06:55] MED LIST changes: +REMERON15 MG PO
[2019-07-25 07:07] VITALS: BP 191/116
[2019-07-25 07:17] LABS: URINE BILIRUBIN NEGATIVE (Negative); URINE BLOOD NEGATIVE (Negative); URINE CLARITY CLEAR; URINE COLOR YELLOW; URINE GLUCOSE-RANDOM NEGATIVE (Negative); URINE KETONES NEGATIVE (Negative); URINE LEUKOCYTES-REFLEX NEGATIVE (Negative); URINE NITRITE-REFLEX NEGATIVE (Negative); URINE PROTEIN NEGATIVE (Negative); URINE SPECIFIC GRAVITY 1.025 (1.005-1.030); URINE UROBILINOGEN 0.2 E.U./dl (0.2-1.0)
[2019-07-25 07:38] LABS: AMP/METHAMP Negative (Negative); BARBITURATES Negative (Negative); BENZODIAZEPINES Negative (Negative); COCAINE Negative (Negative); METHADONE Negative (Negative); OPIATES Negative (Negative); PCP Negative (Negative); THC Negative (Negative)
[2019-07-25 07:40] LABS: ABSOLUTE BASOPHILS 0.1 thou/uL (0.0-0.2); ABSOLUTE EOSINOPHILS 0.1 thou/uL (0.0-0.7); ABSOLUTE LYMPHOCYTES 1.7 thou/uL (0.8-5.3); ABSOLUTE MONOCYTES 0.5 thou/uL (0.0-1.2); ABSOLUTE NEUTROPHILS 7.8 thou/uL (1.6-8.1); EOSINOPHILS 1.4 %; HEMATOCRIT 36.1 % (37.0-47.0); HEMOGLOBIN 12.5 gm/dL (12.0-15.0); LYMPHOCYTES 16.8 %; MCH 28.9 pg (26.0-34.0); MCHC 34.5 g/dL (28.0-37.0); MCV 83.7 fL (80.0-100.0); MONOCYTES 4.9 %; NUCLEATED RBCS 0 /100WBC; POLYS 75.9 %; RBC 4.31 mil/uL (4.20-5.00); RDW-CV 16.1 % (10.5-14.5); WBC 10.3 thou/uL (4.0-11.0)
[2019-07-25 07:51] LABS: ANION GAP 13 mmol/L (7-16); BUN 9 mg/dL (7-18); CALCIUM 8.8 mg/dL (8.5-10.1); CHLORIDE 103 mmol/L (98-107); CO2 23 mmol/L (21-32); CREATININE 0.8 mg/dL (0.6-1.3); GLUCOSE 130 mg/dL (70-99); POTASSIUM 3.6 mmol/L (3.5-5.1); SODIUM 139 mmol/L (136-145)
[2019-07-25 07:56] LABS: PLATELET COUNT* 434 thou/uL (150-400)
[2019-07-25 08:00] LABS: ALBUMIN 3.9 g/dL (3.4-5.0); ALKALINE PHOSPHATASE 106 U/L (46-116); LIPASE 362 U/L (73-393); SGOT 28 U/L (15-37); SGPT 41 U/L (30-65); TOTAL BILIRUBIN 0.2 mg/dL (<0.1-1.0); TOTAL PROTEIN 8.1 g/dL (6.4-8.2); TROPONIN-I LEVEL <0.06 ng/mL (<0.06)
--- NOTE | 2019-07-25 09:28 | NUR ---
UPON TRIAGE PATIENT STATES THAT WE HAVE A CURRENT LIST OF ALL OF HER PAIN MEDICATIONS. UPON REASSESSMENT OF THE PATIENT, DR. VILLALBA WAS ASSESSING THE PATIENT AND SHE DENIES TAKING HER PERCOCET WELL NORCO AT HOME. THE PATIENT'S TOXICITY SCREEN IS NEGATIVE AT THIS TIME. THE PATIENT DENIES TAKING HER PRESCRIPTION NARCOTIC PAIN MEDICATIONS TO THIS NURSE SO THEY WERE REMOVED FROM HER MEDICATION LIST.
[2019-07-25 10:48] VITALS: BP 183/91
[2019-07-25 11:15] VITALS: BP 186/99
--- NOTE | 2019-07-25 19:00 | NUR ---
1115: PATIENT ADMITTED TO 111 FROM ER. ALERT AND ORIENTED. IV RT AC, FLUSHES EASILY W/ 10ML NS. PATIENT STATES WANTING PAIN MEDICATION. NOTED WRETCHING AND SPITTING IN BASIN. NOTED SM AMT OF BILE COLORED FLUID IN BASIN. PATIENT STATES THAT SHE HAD STARTED VOMITING AT 1AM TODAY AND ALSO HAD X1 DIARRHEA STOOL AT THAT TIME. PATIENT STATES HAS NOT EATEN SINCE 5PM YESTERDAY. PATIENT STATES "MY PANCREAS DOES THIS TO ME". STATES HAVING PANCREAS ISSUES SINCE SEPTEMBER 2018. ORIENTED TO AND CALL LIGHT. POC REVIEWED. PATIENT STATES VERBALLY OF UNDERSTANDING. CALL LIGHT IN REACH. RM DARKENED. ~TJRN 1900: SEE MAR. PATIENT RESTED W/ EYES CLOSED MOST OF AFTERNOON. WOKE SPITTING AND WRETCHING. IV FLUIDS INFUSING IN RT AC IV SITE W/O DIFF. CALL LIGHT IN REACH. HRLY ROUNDS DONE. ~TJRN
[2019-07-25 21:40] VITALS: BP 183/108
[2019-07-26] VITALS: BP 161/72
[2019-07-26 05:20] LABS: ABSOLUTE BASOPHILS 0.1 thou/uL (0.0-0.2); ABSOLUTE EOSINOPHILS 0.1 thou/uL (0.0-0.7); ABSOLUTE LYMPHOCYTES 2.7 thou/uL (0.8-5.3); ABSOLUTE NEUTROPHILS 6.6 thou/uL (1.6-8.1); BASOPHILS 1.1 %; EOSINOPHILS 1.4 %; HEMATOCRIT 36.1 % (37.0-47.0); HEMOGLOBIN 12.5 gm/dL (12.0-15.0); LYMPHOCYTES 25.8 %; MCH 28.7 pg (26.0-34.0); MCHC 34.7 g/dL (28.0-37.0); MCV 82.7 fL (80.0-100.0); MONOCYTES 9.3 %; MPV 6.6 fl. (7.2-11.1); NUCLEATED RBCS 0 /100WBC; PLATELET COUNT* 450 thou/uL (150-400); POLYS 62.4 %; RBC 4.37 mil/uL (4.20-5.00); WBC 10.5 thou/uL (4.0-11.0)
--- NOTE | 2019-07-26 05:21 | NUR ---
MEDS GIVEN ORDERED. PRN HYDRALAZINE GIVEN FOR HIGH BP. PT ASKED FOR MORPHIN EVERY 4-5 HOURS FOR ABD PAIN. REFUSED TO TRY PO PAIN MED. C/O NAUSEA AND VOMITING, MORE LIKE RETCHING AND SPITTING, ZOFRAN GIVEN. UP AD BRYON. WILL CONTINUE TO MONITOR.
[2019-07-26 05:34] LABS: CALCIUM 8.6 mg/dL (8.5-10.1); CREATININE 0.5 mg/dL (0.6-1.3)
[2019-07-26 05:39] LABS: POTASSIUM 2.6 mmol/L (3.5-5.1)
[2019-07-26 08:20] VITALS: BP 150/90
[2019-07-26 08:29] LABS: AMYLASE 86 U/L (25-115); LIPASE 218 U/L (73-393)
--- NOTE | 2019-07-26 11:13 | EKG ---
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1975 Requested By: Alen Sheth Order Number: [id number] MD: Wesley Dunlap Measurements Intervals [place] Rate: 76 P: -27 CA: 137 QRS: 35 QRSD: 97 T: 17 QT: 452 QTc: 509 Interpretive Statements Sinus rhythm Prolonged QT interval Compared to ECG 07/20/2019 02:19:18 T-wave abnormality no longer present Electronically Signed On 07-26-2019 11:13:36 CDT by Wesley Dunlap [email or web address] <ELECTRONICALLY SIGNED> By: Wesley Dunlap MD, [facility] 07/26/19 1113 0739 0739 Wesley Dunlap MD, [facility] /EPI
[2019-07-26 15:20] VITALS: BP 165/99
--- NOTE | 2019-07-26 17:15 | NUR ---
PATIENT ALERT AND ORIENTED X 4. VITAL SIGNS STABLE ON ROOM AIR. AFEBRILE. UP INDEPENDENTLY AND AMBULATING IN ROOM. IV PATENT AND SALINE LOCKED. PAIN BEING MANAGED WITH IV AND PO MEDICATIONS. NAUSEA BEING MANAGED WITH IV MEDICATION. TOLERATING CLEAR LIQUID DIET. HOURLY ROUNDS MAINTAINED THROUGHOUT THE SHIFT. CALL LIGHT WITHN REACH. NURSING WILL CONTINUE TO MONITOR.
[2019-07-26 21:48] VITALS: BP 162/95
[2019-07-27 04:44] LABS: ABSOLUTE BASOPHILS 0.1 thou/uL (0.0-0.2); ABSOLUTE EOSINOPHILS 0.5 thou/uL (0.0-0.7); ABSOLUTE LYMPHOCYTES 3.5 thou/uL (0.8-5.3); ABSOLUTE MONOCYTES 1.1 thou/uL (0.0-1.2); ABSOLUTE NEUTROPHILS 4.9 thou/uL (1.6-8.1); EOSINOPHILS 4.9 %; HEMATOCRIT 38.4 % (37.0-47.0); HEMOGLOBIN 13.1 gm/dL (12.0-15.0); LYMPHOCYTES 34.5 %; MCH 28.4 pg (26.0-34.0); MCHC 34.1 g/dL (28.0-37.0); MCV 83.3 fL (80.0-100.0); MONOCYTES 10.7 %; MPV 6.5 fl. (7.2-11.1); NUCLEATED RBCS 0 /100WBC; PLATELET COUNT* 458 thou/uL (150-400); POLYS 48.9 %; RBC 4.61 mil/uL (4.20-5.00)
[2019-07-27 04:58] LABS: CALCIUM 9.3 mg/dL (8.5-10.1); CREATININE 0.8 mg/dL (0.6-1.3); POTASSIUM 3.4 mmol/L (3.5-5.1)
--- NOTE | 2019-07-27 05:01 | NUR ---
PATIENT REPORTED RUQ PAIN THROUGH SHIFT AT 7-06/05. GAVE HER MORPHINE PRN UPON REQUEST. CONSENT SIGNED FOR MRCP IN CHART. SHE HAS BEEN NPO SINCE MIDNIGHT. NO NAUSEA OR VOMITING REPORTED. STILL WAITING FOR DECISION OF WHEN TO SEND FOR MRCP. WILL CONTINUE TO MONITOR.
[2019-07-27 09:00] VITALS: BP 145/106
[2019-07-27 12:04] VITALS: BP 145/106
--- NOTE | 2019-07-27 13:12 | NUR ---
ASSUMED CARE OF PATIENT AT APPROX 0730. ALERT AND ORIENTED X4. ASSESSMENT COMPLETED AND CHARTED. VSS ON ROOM AIR. MINIMAL COMPLAINT OF PAIN. O COMPLAINT OF NAUSEA, PATIENT COMPLAINING OF BEING SO VERY HUNGRY. PATIENT NPO FOR MRCP TODAY, GI ORDERED CLEAR LIQUID DIET AND ADVANCE TOLERATED ONCE MRCP WAS COMPLETED. RESULTS REVIEWED BY GI AND OK'D TO DISCHARGE. PATIENT DISCHARGED AT 1311 WITH ALL PERSONAL BELONGINGS AND DISCHARGE INFORMATION.
--- NOTE | 2019-07-27 14:03 | CON ---
[address] [address] CONSULTATION Name: BEN HOLLEY Room: [address] IN .R.#: [id number] Admission: 07/25/19 Attend Phys: Rene Sky MD Discharge: 07/27/19 Date of : 71 Report #: [id number] THIS REPORT FOR: //name// CC: Rene Sky [facility] physician/PCP DOMENICA SALINAS MD DICTATED BY: Katherine Jarvis [facility] DATE OF SERVICE: 07/26/2019 Please note at the time of this dictation, the patient was seen and physically examined by myself. HISTORY OF PRESENT ILLNESS: This is a 43-year-old female who presented to the Emergency Room after leaving [place] on 07/22/2019 for recurrent pancreatitis, nausea, and vomiting. CT on the showed fatty infiltrate with inflammatory stranding around the head and body of the pancreas. On admission this time, no CT was done. Lipase on this admission was normal, initially at 362 and down to in the 200s. Last time, her LFTs as well as her lipase was elevated, this time they are not. She had recurrent nausea and vomiting with no hematemesis and some diarrhea with no hematochezia. She states her bowels normally move several times a day. The patient has a long history. This is her fifth admission for her pancreatitis. Back earlier this year in January, she had an ERCP where sphincterotomy was attempted, but unsuccessful. She also had a celiac plexus block, which initially she did not think helped, but on her last admission she did state that it did help her pain significantly. She has continued to take her pancreatic enzymes at home. However, given that she was recently seen in the office by Dr. Donovan on 06/27/2019, she has not done the stool culture and we attempted to get that done on her last hospitalization, but due to the cost and the long turnaround time, they canceled the stool culture and she needs to get that still done as an outpatient. ALLERGIES: ABILIFY, DEPAKOTE, TORADOL, TRAMADOL, SEROQUEL, ZOLOFT, GABAPENTIN, AND LYRICA. MEDICATIONS: From home include fluoxetine, pantoprazole, magnesium, buspirone, Tegretol, Remeron, metoclopramide, Vistaril, Vimpat, Zanaflex, Premphase, and Nexium. PAST MEDICAL HISTORY: Acute on chronic pancreatitis and anxiety. PAST SURGICAL HISTORY: Cholecystectomy, hysterectomy, and total knee replacement. FAMILY HISTORY: [place] [address] CONSULTATION Name: KISHANBEN Room: [address] IN M.R.#: [id number] Admission: 07/25/19 Attend Phys: Rene Sky MD Discharge: 07/27/19 Date of : 71 Report #: [id number] SOCIAL HISTORY: Nonsmoker, previous history of alcohol, last drink was New Year's Asha. IV drug use, used to 20 years ago. REVIEW OF SYSTEMS: Twelve-point review of systems is essentially negative except what is mentioned in the HPI. PHYSICAL EXAMINATION: VITAL SIGNS: Temperature 36.8, pulse 77, respirations 18, and blood pressure 183/108. HEART: Regular rate and rhythm. LUNGS: Clear. ABDOMEN: Soft, positive bowel sounds in all 4 quadrants with tenderness noted particularly in the mid to right upper quadrant area. At the time of exam, the patient was doubled over on two occasions with grimacing and severe sharp abdominal pain as she expressed. LABORATORY DATA: Hemoglobin 12.5, white count 10.5, platelets 450, potassium 2.6 and being replaced. Her lipase is normal. GFR was 133 on admission. Ultrasound of the abdomen is still pending. IMPRESSION: 1. Intractable abdominal pain. 2. Recurrent pancreatitis, left against medical advice on 07/22/2019. 3. Hypokalemia. 4. Fatty liver disease. PLAN: 1. Ultrasound of the abdomen still pending. 2. We will consider repeating her CT if the above is negative. 3. Discussed with Dr. Donovan, he would do an ERCP with possible sphincterotomy as an outpatient. He has an opening on , 07/29/2019 at 11:00 and will discuss this with the patient. 4. Further recommendations to be made once Dr. Ellsworth sees the patient later today. Thank you for allowing us to participate in this patient's care. Please do not hesitate to call with any questions in regard to this consult. <ELECTRONICALLY SIGNED> By: Brad Ellsworth MD 07/27/19 1403 1119 2057Brad Ellsworth MD /nt
== END 2019-07-27 13:11 | disposition home or self-care (01) | DRG 392 ==
LOC: M.ERS 06:55 → M.TBA-ER 10:14 → M.ORTHSURG 10:14
PROVIDERS: Emergency Medicine Emergency Medical Services; ADMIT Internal Medicine
DX: R10.84 Generalized abdominal pain (principal); Z68.1 Body mass index [BMI] 19.9 or less, adult; F32.9 Major depressive disorder, single episode, unspecified; F41.1 Generalized anxiety disorder; E87.6 Hypokalemia; K76.0 Fatty (change of) liver, not elsewhere classified; F17.210 Nicotine dependence, cigarettes, uncomplicated; E66.9 Obesity, unspecified; M19.90 Unspecified osteoarthritis, unspecified site; Z90.49 Acquired absence of other specified parts of digestive tract; Z90.710 Acquired absence of both cervix and uterus; Z79.899 Other long term (current) drug therapy; Z88.8 Allergy status to other drugs, medicaments and biological substances; Z82.0 Family history of epilepsy and other diseases of the nervous system; Z82.49 Family history of ischemic heart disease and other diseases of the circulatory system; Z83.49 Family history of other endocrine, nutritional and metabolic diseases

== ENCOUNTER → 2019-08-16 | Outpatient (CLI) | payer MEDICAID ==
[~2019-08-16] MED LIST changes: +COMPAZINE10 M2 PO; +PROMS25 WY RECTAL
== END ==
LOC: M.CT 07:34
DX: K76.0 Fatty (change of) liver, not elsewhere classified (principal); N28.89 Other specified disorders of kidney and ureter; Z90.49 Acquired absence of other specified parts of digestive tract; M46.04 Spinal enthesopathy, thoracic region

== ENCOUNTER 2019-08-25 13:45 | Emergency (ER) | payer MEDICAID ==
[~2019-08-25] VITALS: Ht 162.6 cm; Wt 96.6 kg
[~2019-08-25 13:45] MED LIST changes: -COMPAZINE10 M2 PO; -PROMS25 WY RECTAL
[2019-08-25] MEDS ORDERED: COMPAZINE10 M2 PO (13:52)
[2019-08-25 14:14] LABS: URINE BLOOD NEGATIVE (Negative); URINE CLARITY CLEAR; URINE COLOR YELLOW; URINE GLUCOSE-RANDOM NEGATIVE (Negative); URINE KETONES TRACE (Negative); URINE LEUKOCYTES-REFLEX NEGATIVE (Negative); URINE NITRITE-REFLEX NEGATIVE (Negative); URINE PROTEIN TRACE (Negative); URINE SPECIFIC GRAVITY >= 1.030 (1.005-1.030); URINE UROBILINOGEN 0.2 E.U./dl (0.2-1.0)
[2019-08-25 14:16] LABS: ABSOLUTE BASOPHILS 0.2 thou/uL (0.0-0.2); ABSOLUTE EOSINOPHILS 0.3 thou/uL (0.0-0.7); ABSOLUTE LYMPHOCYTES 2.6 thou/uL (0.8-5.3); ABSOLUTE MONOCYTES 0.7 thou/uL (0.0-1.2); ABSOLUTE NEUTROPHILS 11.6 thou/uL (1.6-8.1); EOSINOPHILS 1.9 %; HEMATOCRIT 39.5 % (37.0-47.0); HEMOGLOBIN 13.3 gm/dL (12.0-15.0); MCH 28.2 pg (26.0-34.0); MCHC 33.6 g/dL (28.0-37.0); MCV 83.8 fL (80.0-100.0); MONOCYTES 4.4 %; NUCLEATED RBCS 0 /100WBC; PLATELET COUNT* 404 thou/uL (150-400); POLYS 75.7 %; RBC 4.71 mil/uL (4.20-5.00); WBC 15.3 thou/uL (4.0-11.0)
[2019-08-25 14:23] LABS: URINE BILIRUBIN 1+ (Negative)
[2019-08-25 14:25] LABS: ICTOTEST (BILI CONFIRMATORY) Negative (Negative)
[2019-08-25 14:28] LABS: CREATININE 0.8 mg/dL (0.6-1.3)
[2019-08-25 14:29] LABS: ALBUMIN 4.1 g/dL (3.4-5.0); TOTAL BILIRUBIN 0.3 mg/dL (<0.1-1.0); TOTAL PROTEIN 8.9 g/dL (6.4-8.2)
[2019-08-25 16:37] LABS: AMP/METHAMP Negative (Negative); BARBITURATES Negative (Negative); BENZODIAZEPINES Negative (Negative); COCAINE Negative (Negative); METHADONE Negative (Negative); OPIATES POSITIVE (Negative); PCP Negative (Negative); THC Negative (Negative)
[2019-08-25] MEDS ORDERED: ONDANSETRON ODT4 MG PO (16:47)
[2019-08-25] MEDS ORDERED: PROMS25 WY RECTAL (16:47)
[2019-08-25 16:57] VITALS: BP 169/101
== END 2019-08-25 16:58 | disposition home or self-care (01) ==
LOC: M.ERS 13:45
PROVIDERS: Physician Assistant
DX: K86.1 Other chronic pancreatitis (principal); R11.2 Nausea with vomiting, unspecified; F41.9 Anxiety disorder, unspecified; F32.9 Major depressive disorder, single episode, unspecified; F17.210 Nicotine dependence, cigarettes, uncomplicated; Z88.6 Allergy status to analgesic agent; Z88.8 Allergy status to other drugs, medicaments and biological substances; Z90.710 Acquired absence of both cervix and uterus; Z96.659 Presence of unspecified artificial knee joint; Z79.899 Other long term (current) drug therapy

== ENCOUNTER 2019-09-17 12:51 | Emergency (ER) | payer MEDICAID ==
[~2019-09-17] VITALS: Ht 162.6 cm; Wt 96.6 kg
[~2019-09-17 12:51] MED LIST changes: +COMPAZINE10 M2 PO; +PROMS25 WY RECTAL
[2019-09-17 13:30] LABS: ABSOLUTE BASOPHILS 0.2 thou/uL (0.0-0.2); ABSOLUTE EOSINOPHILS 0.6 thou/uL (0.0-0.7); ABSOLUTE LYMPHOCYTES 3.4 thou/uL (0.8-5.3); ABSOLUTE MONOCYTES 0.8 thou/uL (0.0-1.2); ABSOLUTE NEUTROPHILS 4.7 thou/uL (1.6-8.1); BASOPHILS 1.7 %; EOSINOPHILS 6.1 %; HEMATOCRIT 36.4 % (37.0-47.0); HEMOGLOBIN 12.5 gm/dL (12.0-15.0); LYMPHOCYTES 35.4 %; MCH 28.6 pg (26.0-34.0); MCHC 34.3 g/dL (28.0-37.0); MCV 83.3 fL (80.0-100.0); MPV 7.1 fl. (7.2-11.1); NUCLEATED RBCS 0 /100WBC; PLATELET COUNT* 359 thou/uL (150-400); POLYS 48.8 %; RBC 4.37 mil/uL (4.20-5.00); WBC 9.7 thou/uL (4.0-11.0)
[2019-09-17 13:34] LABS: CREATININE 0.7 mg/dL (0.6-1.3); POTASSIUM 4.1 mmol/L (3.5-5.1)
[2019-09-17 13:39] LABS: ALBUMIN 3.5 g/dL (3.4-5.0); TOTAL BILIRUBIN 0.1 mg/dL (<0.1-1.0); TOTAL PROTEIN 7.7 g/dL (6.4-8.2)
[2019-09-17] MEDS ORDERED: NORCO 5-325 TA1 EAC1 PO (15:08)
[2019-09-17] MEDS ORDERED: ZOFRAN ODT4 MG DISSOLVE (15:08)
[2019-09-17 15:37] VITALS: BP 161/86
== END 2019-09-17 15:39 | disposition home or self-care (01) ==
LOC: M.ERS 12:51
PROVIDERS: Emergency Medicine Emergency Medical Services
DX: R10.11 Right upper quadrant pain (principal); R10.13 Epigastric pain; R11.2 Nausea with vomiting, unspecified; R19.7 Diarrhea, unspecified; F41.9 Anxiety disorder, unspecified; Z88.6 Allergy status to analgesic agent; Z88.8 Allergy status to other drugs, medicaments and biological substances; Z90.710 Acquired absence of both cervix and uterus; Z96.659 Presence of unspecified artificial knee joint

== ENCOUNTER 2019-09-19 14:50 | Emergency (ER) | payer MEDICAID ==
[~2019-09-19] VITALS: Ht 162.6 cm; Wt 96.2 kg
[~2019-09-19 14:50] MED LIST changes: +ZOFRAN ODT4 MG DISSOLVE
[2019-09-19 15:51] LABS: ABSOLUTE BASOPHILS 0.1 thou/uL (0.0-0.2); ABSOLUTE EOSINOPHILS 0.7 thou/uL (0.0-0.7); ABSOLUTE LYMPHOCYTES 3.9 thou/uL (0.8-5.3); ABSOLUTE MONOCYTES 0.6 thou/uL (0.0-1.2); ABSOLUTE NEUTROPHILS 4.5 thou/uL (1.6-8.1); BASOPHILS 1.4 %; EOSINOPHILS 6.6 %; HEMATOCRIT 34.6 % (37.0-47.0); HEMOGLOBIN 12.1 gm/dL (12.0-15.0); LYMPHOCYTES 39.9 %; MCH 28.8 pg (26.0-34.0); MCHC 34.9 g/dL (28.0-37.0); MCV 82.4 fL (80.0-100.0); MONOCYTES 6.1 %; MPV 6.8 fl. (7.2-11.1); NUCLEATED RBCS 0 /100WBC; PLATELET COUNT* 347 thou/uL (150-400); RDW-CV 15.9 % (10.5-14.5); WBC 9.9 thou/uL (4.0-11.0)
[2019-09-19 16:01] LABS: CALCIUM 8.5 mg/dL (8.5-10.1); CREATININE 0.9 mg/dL (0.6-1.3); POTASSIUM 4.2 mmol/L (3.5-5.1)
[2019-09-19 16:06] LABS: ALBUMIN 3.5 g/dL (3.4-5.0); TOTAL BILIRUBIN 0.1 mg/dL (<0.1-1.0); TOTAL PROTEIN 7.5 g/dL (6.4-8.2)
[2019-09-19 16:55] VITALS: BP 126/90
== END 2019-09-19 16:58 | disposition home or self-care (01) ==
LOC: M.ERS 14:50
PROVIDERS: Family Medicine
DX: G89.29 Other chronic pain (principal); R10.11 Right upper quadrant pain; F41.9 Anxiety disorder, unspecified; F32.9 Major depressive disorder, single episode, unspecified; F17.210 Nicotine dependence, cigarettes, uncomplicated; Z90.710 Acquired absence of both cervix and uterus; Z96.659 Presence of unspecified artificial knee joint; Z88.8 Allergy status to other drugs, medicaments and biological substances; Z88.6 Allergy status to analgesic agent

== ENCOUNTER 2019-10-01 13:26 | Emergency (ER) | payer MEDICAID ==
[~2019-10-01] VITALS: Ht 162.6 cm; Wt 96.6 kg
[2019-10-01 13:42] LABS: ABSOLUTE BASOPHILS 0.1 thou/uL (0.0-0.2); ABSOLUTE EOSINOPHILS 0.6 thou/uL (0.0-0.7); ABSOLUTE LYMPHOCYTES 3.8 thou/uL (0.8-5.3); ABSOLUTE MONOCYTES 0.6 thou/uL (0.0-1.2); ABSOLUTE NEUTROPHILS 4.2 thou/uL (1.6-8.1); BASOPHILS 1.4 %; EOSINOPHILS 6.3 %; HEMATOCRIT 34.9 % (37.0-47.0); LYMPHOCYTES 40.9 %; MCH 28.6 pg (26.0-34.0); MCHC 34.5 g/dL (28.0-37.0); MCV 82.9 fL (80.0-100.0); MONOCYTES 6.7 %; MPV 6.5 fl. (7.2-11.1); NUCLEATED RBCS 0 /100WBC; PLATELET COUNT* 367 thou/uL (150-400); POLYS 44.7 %; RBC 4.22 mil/uL (4.20-5.00); RDW-CV 15.6 % (10.5-14.5); WBC 9.3 thou/uL (4.0-11.0)
[2019-10-01 13:53] LABS: ANION GAP 15 mmol/L (7-16); BUN 14 mg/dL (7-18); CHLORIDE 103 mmol/L (98-107); CO2 21 mmol/L (21-32); CREATININE 0.7 mg/dL (0.6-1.3); GLUCOSE 121 mg/dL (70-99); POTASSIUM 4.2 mmol/L (3.5-5.1); SODIUM 139 mmol/L (136-145)
[2019-10-01 13:57] LABS: ALBUMIN 3.4 g/dL (3.4-5.0); ALKALINE PHOSPHATASE 88 U/L (46-116); LIPASE 103 U/L (73-393); SGOT 12 U/L (15-37); SGPT 22 U/L (30-65); TOTAL PROTEIN 7.6 g/dL (6.4-8.2)
[2019-10-01 13:58] LABS: TOTAL BILIRUBIN < 0.1 mg/dL (<0.1-1.0)
[2019-10-01 14:11] VITALS: BP 164/97
== END 2019-10-01 14:13 | disposition home or self-care (01) ==
LOC: M.ERS 13:26
PROVIDERS: Family Medicine
DX: G89.29 Other chronic pain (principal); R10.10 Upper abdominal pain, unspecified; R11.2 Nausea with vomiting, unspecified; F41.9 Anxiety disorder, unspecified; F32.9 Major depressive disorder, single episode, unspecified; F17.210 Nicotine dependence, cigarettes, uncomplicated; Z88.6 Allergy status to analgesic agent; Z88.8 Allergy status to other drugs, medicaments and biological substances; Z90.710 Acquired absence of both cervix and uterus; Z96.659 Presence of unspecified artificial knee joint

== ENCOUNTER 2020-09-21 23:24 | Emergency (ER) | payer MEDICAID ==
[~2020-09-21] VITALS: Ht 162.6 cm; Wt 104.3 kg
[2020-09-21] MEDS ORDERED: AMBIEN 10 MG TA10 MG PO (23:37)
[2020-09-21 23:55] LABS: URINE BILIRUBIN NEGATIVE (Negative); URINE BLOOD NEGATIVE (Negative); URINE CLARITY CLEAR; URINE COLOR YELLOW; URINE GLUCOSE-RANDOM NEGATIVE (Negative); URINE KETONES NEGATIVE (Negative); URINE LEUKOCYTES-REFLEX NEGATIVE (Negative); URINE NITRITE-REFLEX NEGATIVE (Negative); URINE PROTEIN NEGATIVE (Negative); URINE SPECIFIC GRAVITY 1.015 (1.005-1.030); URINE UROBILINOGEN 0.2 E.U./dl (0.2-1.0)
[2020-09-22 00:03] LABS: AMP/METHAMP POSITIVE (Negative); BARBITURATES Negative (Negative); BENZODIAZEPINES POSITIVE (Negative); COCAINE Negative (Negative); METHADONE Negative (Negative); OPIATES Negative (Negative); PCP Negative (Negative); THC Negative (Negative)
[2020-09-22 00:04] LABS: ABSOLUTE BASOPHILS 0.2 thou/uL (0.0-0.2); ABSOLUTE EOSINOPHILS 0.8 thou/uL (0.0-0.7); ABSOLUTE LYMPHOCYTES 3.5 thou/uL (0.8-5.3); ABSOLUTE NEUTROPHILS 5.8 thou/uL (1.6-8.1); BASOPHILS 1.4 %; EOSINOPHILS 6.8 %; HEMATOCRIT 38.1 % (37.0-47.0); HEMOGLOBIN 12.7 gm/dL (12.0-15.0); LYMPHOCYTES 31.4 %; MCH 27.6 pg (26.0-34.0); MCHC 33.2 g/dL (28.0-37.0); MPV 6.6 fl. (7.2-11.1); NUCLEATED RBCS 0 /100WBC; PLATELET COUNT* 348 thou/uL (150-400); POLYS 51.4 %; RBC 4.59 mil/uL (4.20-5.00); RDW-CV 15.4 % (10.5-14.5); WBC 11.3 thou/uL (4.0-11.0)
[2020-09-22 00:23] LABS: CALCIUM 8.7 mg/dL (8.5-10.1); POTASSIUM 3.6 mmol/L (3.5-5.1)
[2020-09-22 00:27] LABS: ALBUMIN 3.6 g/dL (3.4-5.0); MAGNESIUM 2.1 mg/dL (1.8-2.4); TOTAL BILIRUBIN 0.3 mg/dL (<0.1-1.0); TOTAL PROTEIN 7.9 g/dL (6.4-8.2)
[2020-09-22] MEDS ORDERED: LISINOPRIL10 MG PO (02:11)
[2020-09-22] MEDS ORDERED: NORVASC 2.5 MG2.5 M1 PO (02:11)
[2020-09-22 02:43] VITALS: BP 143/88
== END 2020-09-22 02:44 | disposition home or self-care (01) ==
LOC: M.ERS 23:24
PROVIDERS: Emergency Medicine
DX: K86.1 Other chronic pancreatitis (principal); Z20.828 Contact with and (suspected) exposure to other viral communicable diseases; F17.210 Nicotine dependence, cigarettes, uncomplicated; Z88.8 Allergy status to other drugs, medicaments and biological substances; Z79.899 Other long term (current) drug therapy; Z90.49 Acquired absence of other specified parts of digestive tract; Z90.710 Acquired absence of both cervix and uterus

== ENCOUNTER 2020-09-22 17:52 | Inpatient (IN) | payer MEDICAID ==
[~2020-09-22] VITALS: Ht 162.6 cm; Wt 104.3 kg
[2020-09-22 17:52] VITALS: BP 98/58
[~2020-09-22 17:52] MED LIST changes: +AMBIEN 10 MG TA10 MG PO; +LISINOPRIL10 MG PO; +NORVASC 2.5 MG2.5 M1 PO
[2020-09-22 19:04] LABS: ABSOLUTE BASOPHILS 0.1 thou/uL (0.0-0.2); ABSOLUTE EOSINOPHILS 0.4 thou/uL (0.0-0.7); ABSOLUTE LYMPHOCYTES 1.4 thou/uL (0.8-5.3); ABSOLUTE MONOCYTES 0.8 thou/uL (0.0-1.2); BASOPHILS 0.6 %; EOSINOPHILS 3.6 %; HEMATOCRIT 32.9 % (37.0-47.0); HEMOGLOBIN 10.8 gm/dL (12.0-15.0); MCH 27.2 pg (26.0-34.0); MCHC 32.8 g/dL (28.0-37.0); MPV 6.4 fl. (7.2-11.1); NUCLEATED RBCS 0 /100WBC; PLATELET COUNT* 313 thou/uL (150-400); POLYS 76.8 %; RBC 3.96 mil/uL (4.20-5.00); RDW-CV 15.8 % (10.5-14.5); WBC 11.7 thou/uL (4.0-11.0)
[2020-09-22 19:13] LABS: CALCIUM 7.3 mg/dL (8.5-10.1); CREATININE 0.7 mg/dL (0.6-1.3); POTASSIUM 4.1 mmol/L (3.5-5.1)
[2020-09-22 19:17] LABS: ALBUMIN 3.1 g/dL (3.4-5.0); TOTAL BILIRUBIN 0.3 mg/dL (<0.1-1.0); TOTAL PROTEIN 6.7 g/dL (6.4-8.2)
[2020-09-22 20:23] VITALS: BP 103/64
[2020-09-22 21:30] VITALS: BP 156/92
[2020-09-23 07:51] VITALS: BP 182/114
--- NOTE | 2020-09-23 12:46 | EKG ---
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1975 Requested By: Sohail May Order Number: [id number] MD: Amadou Crouch Measurements Intervals [place] Rate: 94 P: 28 DC: 143 QRS: 23 QRSD: 94 T: -27 QT: 416 QTc: 521 Interpretive Statements Sinus rhythm Low voltage, precordial leads Nonspecific T abnormalities, anterior leads Prolonged QT interval Baseline wander in lead(s) V1 Compared to ECG 07/25/2019 07:39:07 Low QRS voltage now present T-wave abnormality now present Electronically Signed On 09-23-2020 12:46:01 HL7 INTERFACE DEVELOPER by Amadou Crouch [email or web address] <ELECTRONICALLY SIGNED> By: Amadou Crouch MD, FACC 09/23/20 1246 14 181 Amadou Crouch MD, FACC /EPI
[2020-09-23 16:12] VITALS: BP 151/92
[2020-09-23 19:40] VITALS: BP 139/85
[2020-09-24 05:02] LABS: HEMATOCRIT 34.8 % (37.0-47.0); HEMOGLOBIN 11.6 gm/dL (12.0-15.0); MCH 27.7 pg (26.0-34.0); MCHC 33.4 g/dL (28.0-37.0); MCV 82.8 fL (80.0-100.0); MPV 6.7 fl. (7.2-11.1); RBC 4.2 mil/uL (4.20-5.00); RDW-CV 15.7 % (10.5-14.5); WBC 9.1 thou/uL (4.0-11.0)
[2020-09-24 05:22] LABS: ALKALINE PHOSPHATASE 139 U/L (46-116); ANION GAP 8 mmol/L (7-16); BUN 6 mg/dL (7-18); CALCIUM 8.2 mg/dL (8.5-10.1); CHLORIDE 104 mmol/L (98-107); CHOLESTEROL 215 mg/dL (<200); CO2 25 mmol/L (21-32); CREATININE 0.6 mg/dL (0.6-1.3); GLUCOSE 118 mg/dL (70-99); HDL CHOLESTEROL 37 mg/dL (>40); LDL CHOLESTEROL 160 mg/dL (<100); LIPASE 578 U/L (73-393); MAGNESIUM 2.1 mg/dL (1.8-2.4); POTASSIUM 3.6 mmol/L (3.5-5.1); SGOT 146 U/L (15-37); SGPT 87 U/L (30-65); SODIUM 137 mmol/L (136-145); TC:HDL 5.8 Ratio (Not establshd); TOTAL PROTEIN 6.9 g/dL (6.4-8.2); TRIGLYCERIDE 90 mg/dL (<150); VLDL 18 mg/dL (<40)
[2020-09-24 05:28] LABS: SERUM ASSESSMENT CLEAR
[2020-09-24 07:15] VITALS: BP 123/71
[2020-09-24 15:48] VITALS: BP 177/112
[2020-09-24 18:04] VITALS: BP 164/102
[2020-09-24 20:10] VITALS: BP 153/101
[2020-09-25 07:25] VITALS: BP 145/96
[2020-09-25] MEDS ORDERED: HYDROCODON-ACE1 EAC7 PO (10:24)
[2020-09-25] MEDS ORDERED: LIPITOR 40 MG T40 M1 PO (10:24)
[2020-09-25 12:07] VITALS: BP 145/96
--- NOTE | 2020-09-26 14:21 | CON ---
[address] [address] CONSULTATION Name: BEN HOLLEY Room: [address] IN M.R.#: [id number] Admission: 09/22/20 Attend Phys: Yrn Reina Discharge: 09/25/20 Date of : 71 Report #: [id number] THIS REPORT FOR: //name// cc: Fady Sanchez MD, Jason C. MD ~ DATE OF SERVICE: 09/24/2020 HISTORY OF PRESENT ILLNESS: This is a pleasant 45-year-old female well known to our service from her recurrent history of pancreatitis. The patient has a history of at least 7 episodes of acute pancreatitis, had undergone ERCP and EUS before the EUS demonstrated signs of early chronic pancreatitis and although with ERCP was able to cannulate the bile duct. Sphincterotomy was not performed as I was unable to place wire deep into the bile duct. The patient presents with abdominal pain similar to her previous episodes of pancreatitis that began 3 days back. The pain is severe, located in the epigastrium and radiates to the back associated with nausea, no vomiting. The patient reports the pain is better today compared to yesterday. She has been able to tolerate clear liquid diet. PAST MEDICAL HISTORY: The patient has a past medical history significant for acute recurrent pancreatitis, depression, degenerative disk disease, and migraines. PAST SURGICAL HISTORY: The patient has a history of cholecystectomy, carpal tunnel surgery, hysterectomy, knee surgery. SOCIAL HISTORY: The patient continues to smoke. Denies any significant alcohol abuse or recreational drug use. FAMILY HISTORY: No family history of colon cancer or [place] related neoplasia. REVIEW OF SYSTEMS: A comprehensive 10-point review of systems is negative except for what was mentioned in the HPI. PHYSICAL EXAMINATION: VITAL SIGNS: Temperature 37.0, pulse rate 86, respirations 16, blood pressure 123/71. GENERAL: The patient is alert, awake, oriented x 3. HEENT: Pupils are equal, round, reactive to light and accommodation. Mucous membranes are moist. There is no congestion. LUNGS: Clear to auscultation bilaterally. CARDIOVASCULAR: Rate and rhythm regular, S1, S2 present. ABDOMEN: Soft. There is no distention, guarding or rigidity. EXTREMITIES: Warm, well perfused[place] [address] CONSULTATION Name: BEN HOLLEY VICKY Room: [address]#: [id number] Admission: 09/22/20 Attend Phys: Yrn Reina Discharge: 09/25/20 Date of : 71 Report #: [id number] SKIN: Warm and dry. LABORATORY DATA: Hemoglobin 11.6, hematocrit 34.8, platelet count 330, WBC count 9.1. Sodium 137, potassium 3.6, chloride 104, bicarbonate 25, BUN 6, creatinine 0.6, total bilirubin 1, AST 146, ALT 87, alkaline phosphatase 139. Lipase on presentation 2861. ASSESSMENT AND PLAN: Pleasant 45-year-old female with recurrent acute pancreatitis, presenting with another episode of acute pancreatitis. I would continue conservative management at this time. I am going to check serum IgA serologies to rule out IgG4 related pancreatitis. We will set her up for an outpatient ERCP with sphincterotomy for sphincter of Oddi dysfunction causing pancreatitis. Thank you for this consultation. <ELECTRONICALLY SIGNED> By: Tj Donovan MD 09/26/20 1421 1110 1320Tj Donovan MD /nt
[2020-09-27 06:06] LABS: IgG 928 mg/dL (586-1602)
== END 2020-09-25 13:06 | disposition home or self-care (01) | DRG 440 ==
LOC: M.ERS 17:52 → M.TBA-ER 18:35 → M.3W 20:33
PROVIDERS: Family Medicine; Internal Medicine; Internal Medicine Gastroenterology; ADMIT Internal Medicine; ATTEND Internal Medicine
DX: K85.90 Acute pancreatitis without necrosis or infection, unspecified (principal); F32.9 Major depressive disorder, single episode, unspecified; F41.1 Generalized anxiety disorder; G43.909 Migraine, unspecified, not intractable, without status migrainosus; F17.200 Nicotine dependence, unspecified, uncomplicated; Z20.828 Contact with and (suspected) exposure to other viral communicable diseases; Z90.710 Acquired absence of both cervix and uterus; Z90.49 Acquired absence of other specified parts of digestive tract; Z79.899 Other long term (current) drug therapy; Z88.8 Allergy status to other drugs, medicaments and biological substances

== ENCOUNTER 2020-11-06 02:12 | Observation (INO) | payer MEDICAID ==
[~2020-11-06] VITALS: Ht 162.6 cm; Wt 106.1 kg
--- NOTE | ~2020-11-06 | EMS ---
[place] [id number] EMS Patient Care Report Name: BEN HOLLEY Room: [address] Lis Reardon#: [id number] Admission: 11/06/20 Attend Phys: Nicole Gregory MD Discharge: 11/07/20 Date of : 71 Report #: [id number] THIS REPORT FOR: //name// Report Transmitted: 11/10/2020 13:18 EMS Care Summary [facility] Incident [id number] @ 11/06/2020 01:32 Incident Location [address] [place] [address] Patient BEN HOLLEY Female, 45 Years 1975 Patient Address [address] [place] [address] Patient History Pancreatitis,Type 2 Diabetes, Patient Medications Metformin, Chief Complaint Abdominal Pain Disposition Transported No Lights/[place] Reason Abdominal Pain/Problems Transported To [facility] Narrative 45 y/o female pt found ambulatory at home upon EMS arrival. Pt complained of severe nausea and vomiting for the past 2 hours as well as some abdominal pain. Pt was assisted to the ambulance on foot. Once in ambulance, initial vitals were assessed. An IV was attempted in the LAC, but was unsuccessful, [place] [address] EMS Patient Care Report Name: BEN HOLLEY [address]: [address] [id number] Admission: 11/06/20 Attend Phys: Nicole Gregory MD Discharge: 11/07/20 Date of : 71 Report #: [id number] attempt was made in the [facility] and was successful. Pt was given 4mg of Zofran and approximately 500mL of Normal Saline during transport. Pt advises of a history of pancreatitis and recent hospitalization for it in August of 2020. She states that these symptoms feel very similar to that. Pt's vomiting continued throughout transport, despite the nausea medication. She was continuously monitored and reassessed. Care was transferred to RN at [facility]. Initial Vitals @01:46P: 110,R: 18,BP: 154/107,Pain: 6/10,GCS: 15,Glucose: 140,SpO2: 98,Revised Trauma: 12, @02:02P: 100,R: 18,BP: 168/117,Pain: 4/10,GCS: 15,SpO2: 97,Revised Trauma: 12, Assessments @01:56MENTAL:Person Oriented,Time Oriented,Place Oriented,Event Oriented,SKIN:HEENT:Head/Face: No Abnormalities,Eyes: No Abnormalities,Neck/Airway: No Abnormalities,LUNG SOUNDS:General: No Abnormalities,Left Upper: No Abnormalities,Right Upper: No Abnormalities,Left Lower: No Abnormalities,Right Lower: No Abnormalities,ABDOMEN:General: No Abnormalities,Left Upper: No Abnormalities,Right Upper: No Abnormalities,Left Lower: No Abnormalities,Right Lower: No Abnormalities,PELVIS//GI:EXTREMITIES:PULSE:NEURO: Impression Abdominal Pain Procedures @01:50Normal Saline (.9% NaCl) 10cc (20 ga) Site: Antecubital-RightResponse: UnchangedSucceeded@01:51Ondansetron - 4 Milligrams (mg) - Intravenous (IV)Response: Unchanged@01:57Normal Saline (.9% NaCl) 500cc () Site: Antecubital-RightResponse: UnchangedSucceeded Timeline 01:32,Call Received 01:32,Dispatched 01:34,En Route 01:37,Initial Responder On Scene 01:37,On Scene 01:38,At Patient 01:44,Depart Scene 01:46,BP: 154/107 M,PULSE: 110,RR: 18 R,SPO2: 98 Ox,ETCO2: ,B,PAIN: 6,GCS: 15, 01:50,Normal Saline (.9% NaCl) 10cc 20 ga Site: Antecubital-Right,Response: UnchangedSucceeded, 01:51,Ondansetron - 4 Milligrams (mg) - Intravenous (IV),Response: Unchanged 01:57,Normal Saline (.9% NaCl) 500cc Site: Antecubital-Right,Response: UnchangedSucceeded, [place] [address] EMS Patient Care Report Name: BEN HOLLEY Room: [address] Lis Reardon#: [id number] Admission: 11/06/20 Attend Phys: Nicole Gregory MD Discharge: 11/07/20 Date of : 71 Report #: [id number] 02:02,BP: 168/117 M,PULSE: 100,RR: 18 R,SPO2: 97 Ox,ETCO2: ,BG: ,PAIN: 4,GCS: 15, 02:05,At Destination 02:07,Transfer Patient 02:34,Call Closed 02:34,In District Disclaimer v1.1 Copyright 2020 [employer] This EMS Care Summary contains data elements from the applicable legal record (which may be displayed differently). It is designed to provide pertinent information for the following purposes: continuity of care, clinical quality, and state data reporting. The complete legal record is available to ED staff and administrators of the receiving hospital in [facility]'s Patient Tracker. All data is provided "as is."
[~2020-11-06 02:12] MED LIST changes: +LIPITOR 40 MG T40 M1 PO
[2020-11-06 02:16] VITALS: BP 153/76
[2020-11-06] MEDS ORDERED: METFORMIN HCL500 M3 PO (02:22)
[2020-11-06 03:03] LABS: ABSOLUTE BASOPHILS 0.1 thou/uL (0.0-0.2); ABSOLUTE EOSINOPHILS 0.6 thou/uL (0.0-0.7); ABSOLUTE LYMPHOCYTES 2.6 thou/uL (0.8-5.3); ABSOLUTE MONOCYTES 0.9 thou/uL (0.0-1.2); ABSOLUTE NEUTROPHILS 6.8 thou/uL (1.6-8.1); EOSINOPHILS 5.4 %; HEMATOCRIT 36.4 % (37.0-47.0); LYMPHOCYTES 23.4 %; MCH 27.4 pg (26.0-34.0); MCHC 33.1 g/dL (28.0-37.0); MCV 82.9 fL (80.0-100.0); MONOCYTES 8.4 %; NUCLEATED RBCS 0 /100WBC; PLATELET COUNT* 344 thou/uL (150-400); POLYS 61.8 %; RBC 4.39 mil/uL (4.20-5.00)
[2020-11-06 03:06] LABS: URINE BILIRUBIN NEGATIVE (Negative); URINE BLOOD NEGATIVE (Negative); URINE CLARITY CLEAR; URINE COLOR YELLOW; URINE GLUCOSE-RANDOM NEGATIVE (Negative); URINE KETONES NEGATIVE (Negative); URINE LEUKOCYTES-REFLEX NEGATIVE (Negative); URINE NITRITE-REFLEX NEGATIVE (Negative); URINE PROTEIN NEGATIVE (Negative); URINE SPECIFIC GRAVITY 1.025 (1.005-1.030); URINE UROBILINOGEN 0.2 E.U./dl (0.2-1.0)
[2020-11-06 03:12] LABS: CALCIUM 8.4 mg/dL (8.5-10.1); CREATININE 0.9 mg/dL (0.6-1.3); POTASSIUM 4.1 mmol/L (3.5-5.1)
[2020-11-06 03:16] LABS: AMP/METHAMP Negative (Negative); BARBITURATES Negative (Negative); BENZODIAZEPINES Negative (Negative); COCAINE Negative (Negative); METHADONE Negative (Negative); OPIATES Negative (Negative); PCP Negative (Negative); THC Negative (Negative)
[2020-11-06 03:17] LABS: ALBUMIN 3.4 g/dL (3.4-5.0); TOTAL BILIRUBIN 0.2 mg/dL (<0.1-1.0); TOTAL PROTEIN 7.5 g/dL (6.4-8.2)
[2020-11-06 05:55] VITALS: BP 158/67
[2020-11-06 06:22] VITALS: BP 183/103
[2020-11-06 08:00] VITALS: BP 141/91
--- NOTE | 2020-11-06 10:17 | EKG ---
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: EDUARDO : 1975 Requested By: Nuria Mccullough Order Number: [id number] MD: Rustam Laboy Measurements Intervals [place] Rate: 93 P: -11 NE: 137 QRS: 21 QRSD: 102 T: -8 QT: 392 QTc: 488 Interpretive Statements Sinus rhythm Low voltage, precordial leads Borderline T abnormalities, diffuse leads Borderline prolonged QT interval Compared to ECG 09/22/2020 18:15:16 No significant changes Electronically Signed On 11-06-2020 10:17:19 SLAB MILLER OPERATOR by Rustam Laboy [email or web address] <ELECTRONICALLY SIGNED> By: Rustam Laboy MD, FAC 11/06/20 1017 1 1 Rustam Laboy MD, FAC /EPI
--- NOTE | 2020-11-06 12:01 | NUR ---
Pt is A&O. Resides at home with her friend, friend is also a paid caregiver for Pt through Pt's [place] [employer]. Pt states that she gets 117hr/month of caregiver time. Pt is independent with ADLs, friend completes IADLs. No DME. No hx of HH or SNF. Goal is home on Friday. Pt to have ERCP at [facility] on . GI following here.
[2020-11-06 16:33] VITALS: BP 139/78
--- NOTE | 2020-11-06 18:55 | NUR ---
RECEIVED REPORT. ASSUMED CARE OF PT AROUND 0730. AM ASSESSMENT AND VITALS COMPLETED CHARTED. MEDS PER EMAR. EPIGASTRIC PAIN MANAGED WITH IV AND TRANSDERMAL PAIN MEDICATIONS WITH PARTIAL RELIEF. NPO. GI ROUNDED. IV FLUIDS INFUSING. PT TO HAVE GI PROCEDURE ON THRUSDAY AN OUTPATIENT. PT CURRENTLY RESTING IN BED. CALL LIGHT IS WITHIN REACH. HOURLY ROUNDING PERFORMED. LOW FALL RISK PRECAUTIONS IN PLACE.
[2020-11-06 22:50] VITALS: BP 140/84
[2020-11-07 04:28] LABS: HEMATOCRIT 32.9 % (37.0-47.0); MCH 27.5 pg (26.0-34.0); MCHC 33.5 g/dL (28.0-37.0); MCV 82.3 fL (80.0-100.0); MPV 6.8 fl. (7.2-11.1); RBC 3.99 mil/uL (4.20-5.00); RDW-CV 14.8 % (10.5-14.5); WBC 9.5 thou/uL (4.0-11.0)
[2020-11-07 04:54] LABS: CALCIUM 8.3 mg/dL (8.5-10.1); CREATININE 0.7 mg/dL (0.6-1.3); POTASSIUM 3.5 mmol/L (3.5-5.1); TOTAL BILIRUBIN 0.9 mg/dL (<0.1-1.0); TOTAL PROTEIN 6.9 g/dL (6.4-8.2)
[2020-11-07 07:55] VITALS: BP 126/71
--- NOTE | 2020-11-07 12:15 | NUR ---
THIS NURSE AGREES WITH ASSESSMENT BY ERIC DELONG
--- NOTE | 2020-11-07 12:16 | CON ---
[address] [address] CONSULTATION Name: BEN HOLLEY Room: [address] M.R.#: [id number] Admission: 11/06/20 Attend Phys: Nicole Gregory MD Discharge: Date of : 71 Report #: [id number] THIS REPORT FOR: cc: Fady Sanchez MD, Jason C. MD ~ Brad Ellsworth MD DATE OF SERVICE: 11/06/2020 PRIMARY CARE PHYSICIAN: Fady Sanchez MD Please note at the time of this dictation, the patient was seen and physically examined by myself. REASON FOR CONSULTATION: Recurrent acute on chronic pancreatitis and nausea and vomiting. HISTORY OF PRESENT ILLNESS: This is a 45-year-old female who is well known to our practice who had last admission here at [facility] on 09/22/2019 for similar complaints. It was noted again that she has acute on chronic pancreatitis. She is scheduled for an EUS, ERCP with Dr. Donovan on 11/09/2020 this week on at [facility]. The patient states that she woke up about midnight with abdominal pain and started having recurrent nausea and vomiting, which prompted her to come to the Emergency Room. She states she initially went to [place], but they said they could not see her for several hours, so she left and came here to [facility], so that she could get relief of her symptoms. The patient does take Zenpep at home 20,000 units with each meal and only one tablet with snacks. She does take about 4 Ultram on a daily basis for her pain. She denies any hematemesis or any coffee ground emesis with her vomiting and she states her bowels were very loose yesterday and denies any bright red blood or any dark stools. ALLERGIES: ZOLOFT, DEPAKOTE, TORADOL, SEROQUEL, GABAPENTIN, LYRICA AND ABILIFY. MEDICATIONS: From home include Norvasc, Zestril, Nexium, Zenpep, Vistaril, Prozac, Remeron, metformin, Tegretol, buspirone and Premphase. PAST MEDICAL HISTORY: Chronic pancreatitis, depression, psychotic episodes, anxiety, generalized anxiety disorder. PAST SURGICAL HISTORY: Cholecystectomy, hysterectomy and a right knee replacement. FAMILY HISTORY: Negative for any [place] [address] CONSULTATION Name: BEN HOLLEY Room: [address]#: [id number] Admission: 11/06/20 Attend Phys: Nicole Gregory MD Discharge: Date of : 71 Report #: [id number] SOCIAL HISTORY: Denies any alcohol use. Past use, in the remote past of some recreational drugs, mainly marijuana. Tobacco use, continues to smoke around a half to a full pack per day. REVIEW OF SYSTEMS: Twelve-point review of systems is essentially negative except what is mentioned in the HPI. PHYSICAL EXAMINATION: VITAL SIGNS: Temperature 36.5, pulse 91, respirations 18, blood pressure 183/73. HEART: Regular rate and rhythm. LUNGS: Clear. ABDOMEN: Soft, positive bowel sounds in all 4 quadrants with tenderness noted in the epigastric to left upper quadrant area. LABORATORY DATA: Hemoglobin is 12.8, white count is 11, platelets 344, lipase is 1709. LFTs are normal. GFR is 68. Her past IgA levels have been negative. No imaging was performed. IMPRESSION: 1. Recurrent acute pancreatitis on chronic. 2. Nausea and vomiting. 3. Anxiety. PLAN: 1. N.p.o. 2. IV fluids at 250 an hour. 3. Zofran p.r.n. for nausea and vomiting. 4. Plan to get her out of here before her scheduled EUS, ERCP on with Dr. Donovan. 5. Further recommendations to be made once Dr. Ellsworth sees the patient later today. Thank you for allowing us to participate in this patient's care. Please do not hesitate to call with any questions in regard to this consult. <ELECTRONICALLY SIGNED> By: Brad Ellsworth MD 11/07/20 1216 0953 1048Brad Ellsworth MD /nt
[2020-11-07 13:38] VITALS: BP 126/71
[2020-11-07 14:42] VITALS: BP 126/71
[2020-11-07] MEDS ORDERED: REGLAN 10 MG TA10 MG PO (14:47)
[2020-11-07] MEDS ORDERED: HYDROCODON-ACE1 EAC7 PO (14:48)
--- NOTE | 2020-11-07 15:48 | NUR ---
PT GIVEN DISCHARGE INFORMATION, CARE NOTES, AND PRESCRIPTIONS. IVS REMOVED. PT BELONGINGS GATHERED. PT LEFT AMBULATORY WITH NURSING STAFF TO HOME. HOURLY ROUNDING COMPLETED.
[2020-11-07 15:49] VITALS: BP 126/71
== END 2020-11-07 15:49 | disposition home or self-care (01) ==
LOC: M.ERS 02:12 → M.TBA-ER 04:41 → M.2W 06:00 → M.3W 21:21
PROVIDERS: Internal Medicine; Internal Medicine Gastroenterology; Personal Emergency Response Attendant; ADMIT Internal Medicine; ATTEND Internal Medicine
DX: K85.90 Acute pancreatitis without necrosis or infection, unspecified (principal); I10 Essential (primary) hypertension; E11.9 Type 2 diabetes mellitus without complications; G43.909 Migraine, unspecified, not intractable, without status migrainosus; F32.9 Major depressive disorder, single episode, unspecified; F41.9 Anxiety disorder, unspecified; E66.01 Morbid (severe) obesity due to excess calories; Z68.41 Body mass index [BMI] 40.0-44.9, adult; F17.210 Nicotine dependence, cigarettes, uncomplicated; Z79.899 Other long term (current) drug therapy; Z20.828 Contact with and (suspected) exposure to other viral communicable diseases

== ENCOUNTER 2021-03-03 18:51 | Inpatient (IN) | payer MEDICAID ==
[~2021-03-03] VITALS: Ht 162.6 cm; Wt 103.0 kg
--- NOTE | ~2021-03-03 | EMS ---
[facility] [address] [facility] [place] [address] EMS Patient Care Report Name: BEN HOLLEY Room: [address]#: [id number] Admission: 03/03/21 Attend Phys: Nicole Gregory MD Discharge: Date of : 71 Report #: [id number] THIS REPORT FOR: //name// Report Transmitted: 03/03/2021 22:15 EMS Care Summary [facility] Incident [id number] @ 03/03/2021 18:19 Incident Location [address] [place] [address] Patient BEN HOLLEY Female, 45 Years 1975 Patient Address [address] [place] [address] Patient History Depression,Anxiety,Pancreatitis,Insomnia, Patient Allergies Lyrica,Zoloft, Patient Medications Prozac, Ambien, Amlodipine, Clonazepam, Remeron, Estradiol, Lisinopril, Chief Complaint Abdominal Pain Disposition Transported No Lights/[place] Reason Abdominal Pain/Problems Transported To [facility] Narrative Med 1 and Engine 1 were dispatched for a [age] year-old female c/o abdominal pain and nausea for the last three hours. Patient has an extensive HX [facility] [address] [place] [address] EMS Patient Care Report Name: BEN HOLLEY Room: [address]#: [id number] Admission: 03/03/21 Attend Phys: Nicole Gregory MD Discharge: Date of : 71 Report #: [id number] of Pancreatitis flare ups. Patient was waiting outside on her porch for EMS. Patient was assisted to the ambulance and secured to the stretcher. Med 1 went en route to [facility] per patient's request. Patient vitals were obtained, patient was placed on the monitor technician. It shown NSR. Patient was given Ondonestron IM in her left deltoid. Patients was monitored throughout transport. When hospital report was called to [facility] they notified us that they were on high volume. Patient changed her mind and wanted to go to [facility]. Hospital report was given via radio with no orders requested or received. Med 1 arrived at [facility]. Patient was moved into the ER via stretcher without incident to room 9. Patient care was transferred to ER staff. Med 1 returned back into service. [id number] KShook Initial Vitals @18:29P: 63,R: 18,BP: 94/52,Pain: 4/10,GCS: 15,SpO2: 99,Revised Trauma: 12, @18:42P: 67,R: 18,BP: 106/64,Pain: 4/10,GCS: 15,SpO2: 98,Revised Trauma: 12, Assessments @18:30MENTAL:No Abnormalities,SKIN:No Abnormalities,HEENT:Head/Face: No Abnormalities,Eyes: No Abnormalities,Neck/Airway: No Abnormalities,LUNG SOUNDS:General: No Abnormalities,Left Upper: No Abnormalities,Right Upper: No Abnormalities,Left Lower: No Abnormalities,Right Lower: No Abnormalities,ABDOMEN:General: No Abnormalities,Left Upper: No Abnormalities,Right Upper: No Abnormalities,Left Lower: No Abnormalities,Right Lower: No Abnormalities,PELVIS//GI:EXTREMITIES:Left Arm: No Abnormalities,Right Arm: No Abnormalities,Left Leg: No Abnormalities,Right Leg: No Abnormalities,PULSE:NEURO:No Abnormalities, Impression Abdominal Pain Procedures @18:28Ondansetron - 4 Milligrams (mg) - Intramuscular (IM)Response: Improved Timeline 18:19,Call Received 18:19,Dispatched 18:19,En Route 18:22,On Scene 18:23,At Patient 18:28,Ondansetron - 4 Milligrams (mg) - Intramuscular (IM),Response: [place] [address] EMS Patient Care Report Name: BEN HOLLEY Room: [address]#: [id number] Admission: 03/03/21 Attend Phys: Nicole Gregory MD Discharge: Date of : 71 Report #: [id number] 18:29,BP: 94/52 M,PULSE: 63,RR: 18 R,SPO2: 99 Ox,ETCO2: ,BG: ,PAIN: 4,GCS: 15, 18:31,Depart Scene 18:42,BP: 106/64 M,PULSE: 67,RR: 18 R,SPO2: 98 Ox,ETCO2: ,BG: ,PAIN: 4,GCS: 15, 18:50,At Destination 19:16,Call Closed 19:16,In District Disclaimer v1.1 Copyright 2020 [employer] This EMS Care Summary contains data elements from the applicable legal record (which may be displayed differently). It is designed to provide pertinent information for the following purposes: continuity of care, clinical quality, and state data reporting. The complete legal record is available to ED staff and administrators of the receiving hospital in [facility]'s Patient Tracker. All data is provided "as is."
[~2021-03-03 18:51] MED LIST changes: +METFORMIN HCL500 M3 PO
[2021-03-03 18:54] VITALS: BP 92/48
[2021-03-03] MEDS ORDERED: CLONIDINE HCL0.3 M3 PO (18:57)
[2021-03-03] MEDS ORDERED: AMBIEN5 MG PO (18:57)
[2021-03-03] MEDS ORDERED: REGLAN 10 MG TA10 MG PO (18:58)
[2021-03-03 20:06] LABS: URINE BLOOD NEGATIVE (Negative); URINE CLARITY CLEAR; URINE COLOR YELLOW; URINE GLUCOSE-RANDOM NEGATIVE (Negative); URINE KETONES NEGATIVE (Negative); URINE LEUKOCYTES-REFLEX TRACE (Negative); URINE NITRITE-REFLEX NEGATIVE (Negative); URINE PROTEIN NEGATIVE (Negative); URINE SPECIFIC GRAVITY >= 1.030 (1.005-1.030); URINE UROBILINOGEN 0.2 E.U./dl (0.2-1.0)
[2021-03-03 20:11] LABS: ICTOTEST (BILI CONFIRMATORY) Positive (Negative); URINE BILIRUBIN 1+ (Negative)
[2021-03-03 20:13] LABS: ABSOLUTE BASOPHILS 0.1 thou/uL (0.0-0.2); ABSOLUTE EOSINOPHILS 0.8 thou/uL (0.0-0.7); ABSOLUTE LYMPHOCYTES 4.3 thou/uL (0.8-5.3); ABSOLUTE MONOCYTES 0.9 thou/uL (0.0-1.2); ABSOLUTE NEUTROPHILS 6.8 thou/uL (1.6-8.1); BASOPHILS 0.8 %; EOSINOPHILS 6.3 %; HEMATOCRIT 34.8 % (37.0-47.0); HEMOGLOBIN 11.5 gm/dL (12.0-15.0); LYMPHOCYTES 33.2 %; MCH 27.2 pg (26.0-34.0); MCHC 33.1 g/dL (28.0-37.0); MCV 82.4 fL (80.0-100.0); MONOCYTES 6.9 %; MPV 6.8 fl. (7.2-11.1); NUCLEATED RBCS 0 /100WBC; PLATELET COUNT* 341 thou/uL (150-400); POLYS 52.8 %; RBC 4.22 mil/uL (4.20-5.00); RDW-CV 14.8 % (10.5-14.5); WBC 12.9 thou/uL (4.0-11.0)
[2021-03-03 20:20] LABS: HYALINE CASTS 4-10 Moderate /LPF (None Seen); MUCUS None Seen strn/LPF (None Seen); SQUAMOUS >10 Many /LPF (0-3); URINE WBC-REFLEX 0-5 Rare /HPF (0-5)
[2021-03-03 20:21] LABS: BACTERIA-REFLEX 1-9 Few /HPF (None Seen); CRYSTALS None Seen /LPF (None Seen); URINE RBC None Seen /HPF (0-2)
[2021-03-03 20:28] LABS: ALBUMIN 3.5 g/dL (3.4-5.0); CREATININE 0.9 mg/dL (0.6-1.3); MAGNESIUM 2.1 mg/dL (1.8-2.4); TOTAL BILIRUBIN 0.2 mg/dL (<0.1-1.0); TOTAL PROTEIN 7.9 g/dL (6.4-8.2)
[2021-03-03 20:33] LABS: CALCIUM 8.9 mg/dL (8.5-10.1)
[2021-03-03 23:30] VITALS: BP 117/58
[2021-03-04 00:23] VITALS: BP 125/95
--- NOTE | 2021-03-04 00:32 | NUR ---
ALERT AND ORIENTED X 4 FEMALE PATIENT TO ROOM 111 BY CART FROM ER IN STABLE CONDITION. ADMISSION ROUTINES IN PROGRESS. VITAL SIGNS STABLE. CONTINUE TO MONITOR.
--- NOTE | 2021-03-04 04:44 | NUR ---
PATIENT HAS REMAINED ALERT AND ORIENTED X 4 THROUGHOUT THE NIGHT. UP SBA. MEDS/IVF'S PER ORDER. MEDICATED FOR PAIN Q3H TO FAIR EFFECT. NO NAUSEA. NPO. MOUTH SWABS PROVIDED. STATED SKIN ITCHING WITH NARCOTICS. NO RASH. REQUEST FOR BENADRYL SENT TO PHYSICIAN. AWAITING CALL BACK. CONTINUE TO MONITOR.
[2021-03-04 08:30] VITALS: BP 126/76
[2021-03-04 09:10] LABS: ALBUMIN 3.4 g/dL (3.4-5.0); CALCIUM 8.8 mg/dL (8.5-10.1); CREATININE 0.7 mg/dL (0.6-1.3); POTASSIUM 4.1 mmol/L (3.5-5.1); TOTAL PROTEIN 7.6 g/dL (6.4-8.2)
[2021-03-04 16:00] VITALS: BP 107/66
--- NOTE | 2021-03-04 18:29 | NUR ---
PT A&Ox4. VITALS STABLE. CALLS OUT FOR PAIN MEDS EVERY 2 HOURS. PATIENT RESTING IN BED QUIETLY AND CALMLY EVERY TIME I AM IN THE ROOM. RATES PAIN 7-10. TOLERATING MEALS. NO NAUSEA. IV PATENT. ON RA. WILL CONTINUE TO MONITOR.
[2021-03-04 19:45] VITALS: BP 128/79
--- NOTE | 2021-03-05 04:31 | NUR ---
PATIENT HAS REMAINED ALERT AND ORIENTED X 4 THROUGHOUT THE SHIFT AND RESTING QUIETLY ON HOURLY ROUNDS. UP TO BR WITH SBA. NO BM'S. ADEQUATE VOIDS. IVF'S AND MEDS PER ORDER. CONTINUES TO RATE HER ABDOMINAL PAIN 05/05. ORAL PAIN MEDICATION ENCOURAGED. DID ALSO RECEIVE 2 DOSES IV PAIN MEDS. NO NAUSEA. VITAL SIGNS STABLE. CONTINUE TO MONITOR.
[2021-03-05 05:21] LABS: ABSOLUTE BASOPHILS 0.1 thou/uL (0.0-0.2); ABSOLUTE EOSINOPHILS 0.5 thou/uL (0.0-0.7); ABSOLUTE LYMPHOCYTES 2.8 thou/uL (0.8-5.3); ABSOLUTE MONOCYTES 0.7 thou/uL (0.0-1.2); ABSOLUTE NEUTROPHILS 3.2 thou/uL (1.6-8.1); BASOPHILS 0.8 %; EOSINOPHILS 7.5 %; HEMATOCRIT 33.4 % (37.0-47.0); HEMOGLOBIN 11.1 gm/dL (12.0-15.0); MCH 27.7 pg (26.0-34.0); MCHC 33.2 g/dL (28.0-37.0); MCV 83.4 fL (80.0-100.0); MONOCYTES 9.1 %; MPV 6.9 fl. (7.2-11.1); NUCLEATED RBCS 0 /100WBC; PLATELET COUNT* 315 thou/uL (150-400); POLYS 43.6 %; RDW-CV 14.7 % (10.5-14.5); WBC 7.3 thou/uL (4.0-11.0)
[2021-03-05 05:26] LABS: CALCIUM 8.8 mg/dL (8.5-10.1); CREATININE 0.5 mg/dL (0.6-1.3); POTASSIUM 4.3 mmol/L (3.5-5.1)
[2021-03-05 08:12] VITALS: BP 123/79
--- NOTE | 2021-03-05 14:14 | NUR ---
Pt is A&O. Resides at home with a friend, friend is her [employer] caregiver. Pt is independent. No DME. No hx of HH or SNF. Goal is home at dc, no needs anticipated. GI following. Anticipate dc tomorrow.
[2021-03-05 14:53] VITALS: BP 107/72
--- NOTE | 2021-03-05 15:20 | EKG ---
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: [facility] : 1975 Requested By: Candy Wilcox Order Number: [id number] MD: Rustam Laboy Measurements Intervals [place] Rate: 69 P: 40 VA: 152 QRS: 51 QRSD: 104 T: 19 QT: 492 QTc: 527 Interpretive Statements Sinus rhythm Low voltage, precordial leads Borderline T abnormalities, anterior leads Prolonged QT interval Compared to ECG 11/06/2020 02:42:20 No significant changes Electronically Signed On 03-05-2021 15:20:42 CDT by Rustam Laboy [email or web address] <ELECTRONICALLY SIGNED> By: Rustam Laboy MD, [facility] 03/05/21 1520 2216 2216 Rustam Laboy MD, FAC /EPI
--- NOTE | 2021-03-05 17:53 | NUR ---
PT A&OX4 VSS. PT FREQUENTLY REQUESTS NARCOTIC PAIN MEDICATIONS. PT ENCOURAGED TO USE P.O. MEDS, PT CONTINUE TO ASK ABOUT MORPHINE. PT UP AD BRYON. PT REPORTS TOLERATING PO INTAKE DENIES NAUSEA/VOMITING. IV TO LFA PATENT, NS RUNNING AT 100ML/HOUR. PT RESTS IN BED WITH CALL LIGHT IN REACH. WILL CONTINUE TO MONITOR.
[2021-03-05 21:09] VITALS: BP 138/62
[2021-03-06 06:09] LABS: ABSOLUTE BASOPHILS 0.1 thou/uL (0.0-0.2); ABSOLUTE EOSINOPHILS 0.7 thou/uL (0.0-0.7); ABSOLUTE MONOCYTES 0.6 thou/uL (0.0-1.2); ABSOLUTE NEUTROPHILS 3.1 thou/uL (1.6-8.1); BASOPHILS 1.2 %; EOSINOPHILS 9.1 %; HEMATOCRIT 33.5 % (37.0-47.0); HEMOGLOBIN 11.1 gm/dL (12.0-15.0); LYMPHOCYTES 40.6 %; MCH 27.5 pg (26.0-34.0); MCV 83.2 fL (80.0-100.0); MONOCYTES 7.6 %; NUCLEATED RBCS 0 /100WBC; PLATELET COUNT* 312 thou/uL (150-400); POLYS 41.5 %; RBC 4.03 mil/uL (4.20-5.00); RDW-CV 14.8 % (10.5-14.5); WBC 7.4 thou/uL (4.0-11.0)
[2021-03-06 06:23] LABS: CALCIUM 8.8 mg/dL (8.5-10.1); CREATININE 0.6 mg/dL (0.6-1.3); POTASSIUM 3.9 mmol/L (3.5-5.1); TOTAL BILIRUBIN 0.4 mg/dL (<0.1-1.0); TOTAL PROTEIN 7.1 g/dL (6.4-8.2)
[2021-03-06 07:40] VITALS: BP 126/70
[2021-03-06] MEDS ORDERED: ROXICODONE5 M2 PO (07:55)
[2021-03-06 08:52] VITALS: BP 138/62
[2021-03-06 08:56] VITALS: BP 126/70
--- NOTE | 2021-03-06 10:55 | NUR ---
PT A&OX4 VSS. AD BRYON, GAIT STEADY. PT DENIES NAUSEA/VOMITING. PT SLEEPING AT TIME THIS NURSE BEGAN ASSESSMENT. IV TO LFA PATENT, DRESSING C/D/I. IV DC'D PRIOR TO PT LEAVING UNIT. PT AMBULATED TO NURSES STATION MULTIPLE OCCASSIONS. PT DRESSED INDEPENDENTLY. PT STATES UNDERSTANDING OF DC INSTRUCITONS AND RX PROVIDED. PT AND SIG OTHER STATE UNDERSTANDING OG INSTRUCITONS AND FOLLOW-UP INFORMATION. PT LEFT UNIT WITH SPOUSE AND ALL PERSONAL BELONGINGS.
--- NOTE | 2021-03-07 15:34 | CON ---
[address] [address] CONSULTATION Name: BEN HOLLEY Room: [address] M.R.#: [id number] Admission: 03/03/21 Attend Phys: Nicole Gregory MD Discharge: 03/06/21 Date of : 71 Report #: [id number] THIS REPORT FOR: cc: Fady Sanchez MD, Jason C. MD Vardakis, Gregory DO DOC #: [id number] cc: MD Katherine Dodd, [facility] DATE OF CONSULTATION: 03/05/2021 At the time of this dictation, the patient was seen and physically examined by myself. REASON FOR CONSULTATION: Abdominal pain, pancreatitis. HISTORY OF PRESENT ILLNESS: This is a 45-year-old female who is well known to our practice that has issues with acute on chronic pancreatitis in which she came to the hospital because of increasing pain. In talking with the patient, she states that her pain started getting worse and she had some nausea associated with it. The patient states she has only been taken 10,000 units of her pancreatic enzyme with each meal and not a higher dose, we will increase that at this time. She also states she does not take any pancreatic enzymes with any snacks as well. The patient did undergo an EUS back in October when she was last admitted here at that time. In looking at her CT, it shows improvement from when her previous hospitalization at that time. She does take 4 tramadol on a daily basis at home for her abdominal discomfort. The patient was able to tolerate full healthy diet this morning which is minimal nausea. ALLERGIES: ZOLOFT, ABILIFY, DEPAKOTE, TORADOL, SEROQUEL, GABAPENTIN AND LYRICA. HOME MEDICATIONS: Include clonidine, Ambien, metoclopramide, Zestril, Nexium, Zenpep, Vistaril, Prozac, buspirone, Premphase and Norvasc. PAST MEDICAL HISTORY: Acute on chronic pancreatitis, back and cervical strain, fatty liver, generalized anxiety disorder with some depression and psychotic episodes. PAST SURGICAL HISTORY: Knee replacement, hysterectomy and cholecystectomy. FAMILY HISTORY: Noncontributory. SOCIAL HISTORY: Denies any alcohol or illegal drug use. Tobacco, [place] [address] CONSULTATION Name: BEN HOLLEY Room: [address]#: [id number] Admission: 03/03/21 Attend Phys: Nicole Gregory MD Discharge: 03/06/21 Date of : 71 Report #: [id number] REVIEW OF SYSTEMS: The patient was negative for IgG for autoimmune pancreatitis. Twelve point review of systems is essentially negative except what is mentioned in the HPI. PHYSICAL EXAMINATION: VITAL SIGNS: Temperature 37, pulse 75, respirations are 18, blood pressure 123/74. HEART: Regular rate and rhythm. LUNGS: Diminished but clear. ABDOMEN: Soft, positive bowel sounds in all four quadrants with some tenderness noted in the upper quadrant. LABORATORY DATA: Hemoglobin is 11.1, white count is 7.3, platelets 315. GFR is 132. CRP is 127. Lipase was 372, total bilirubin is 1, alkaline phosphatase was 149, ALT 99, AST 218. CT showed mild inflammation of the tail of the pancreas which shows improvement from previous. ASSESSMENT: 1. Acute on chronic pancreatitis. 2. Abnormal CT. 3. Anemia, mild. 4. Elevated liver function tests. 5. Obesity. PLAN: 1. Fluids. 2. Pain medication as needed. 3. Increase her pancreatic enzymes to 30,000 with meals and 10,000 with snacks. 4. We will recheck her LFTs today. 5. Further recommendations to be made after Dr. Reyes sees the patient later today. Thank you for allowing us to participate in this patient's care. Please do not hesitate to call with any questions regarding this consultation. [place] DORON Forte/[place] [address] CONSULTATION Name: BEN HOLLEY VICKY Room: [address] M.R.#: [id number] Admission: 03/03/21 Attend Phys: Nicole Gregory MD Discharge: 03/06/21 Date of : 71 Report #: [id number] <ELECTRONICALLY SIGNED> By: Darrell Reyes DO 03/07/21 [id number] Reyes DO /nt
== END 2021-03-06 11:00 | disposition home or self-care (01) | DRG 440 ==
LOC: M.ERS 18:51 → M.ORTHSURG 19:51 → M.TBA-ER 19:51 → M.ORTHSURG 23:37
PROVIDERS: Emergency Medicine; Internal Medicine; ADMIT Internal Medicine; ATTEND Internal Medicine
DX: K85.90 Acute pancreatitis without necrosis or infection, unspecified (principal); K86.1 Other chronic pancreatitis; F32.9 Major depressive disorder, single episode, unspecified; F41.1 Generalized anxiety disorder; E66.01 Morbid (severe) obesity due to excess calories; D64.9 Anemia, unspecified; Z96.659 Presence of unspecified artificial knee joint; Z20.822 Contact with and (suspected) exposure to COVID-19; Z79.899 Other long term (current) drug therapy; Z90.710 Acquired absence of both cervix and uterus; Z88.1 Allergy status to other antibiotic agents; Z88.8 Allergy status to other drugs, medicaments and biological substances; Z68.38 Body mass index [BMI] 38.0-38.9, adult

== ENCOUNTER 2021-08-22 16:06 | Emergency (ER) | payer MEDICAID ==
[~2021-08-22] VITALS: Ht 162.6 cm; Wt 88.5 kg
[~2021-08-22 16:06] MED LIST changes: +AMBIEN5 MG PO; +CLONIDINE HCL0.3 M3 PO; +ROXICODONE5 M2 PO
[2021-08-22] MEDS ORDERED: SEROQUEL 25 MG25 M1 PO (16:21)
[2021-08-22 17:41] LABS: URINE BILIRUBIN NEGATIVE (Negative); URINE BLOOD NEGATIVE (Negative); URINE CLARITY CLEAR; URINE COLOR YELLOW; URINE GLUCOSE-RANDOM NEGATIVE (Negative); URINE KETONES NEGATIVE (Negative); URINE LEUKOCYTES-REFLEX NEGATIVE (Negative); URINE PROTEIN NEGATIVE (Negative); URINE SPECIFIC GRAVITY 1.025 (1.005-1.030); URINE UROBILINOGEN 0.2 E.U./dl (0.2-1.0)
[2021-08-22 17:42] LABS: URINE NITRITE-REFLEX POSITIVE (Negative)
[2021-08-22 17:48] LABS: AMP/METHAMP Negative (Negative); BARBITURATES Negative (Negative); BENZODIAZEPINES Negative (Negative); COCAINE Negative (Negative); METHADONE Negative (Negative); OPIATES Negative (Negative); PCP Negative (Negative); THC Negative (Negative)
[2021-08-22 17:49] LABS: ABSOLUTE BASOPHILS 0.1 thou/uL (0.0-0.2); ABSOLUTE EOSINOPHILS 0.6 thou/uL (0.0-0.7); ABSOLUTE LYMPHOCYTES 2.6 thou/uL (0.8-5.3); ABSOLUTE MONOCYTES 0.7 thou/uL (0.0-1.2); ABSOLUTE NEUTROPHILS 6.3 thou/uL (1.6-8.1); BASOPHILS 1.2 %; EOSINOPHILS 5.7 %; HEMATOCRIT 36.7 % (37.0-47.0); HEMOGLOBIN 12.1 gm/dL (12.0-15.0); LYMPHOCYTES 24.7 %; MCH 26.1 pg (26.0-34.0); MCHC 32.9 g/dL (28.0-37.0); MCV 79.5 fL (80.0-100.0); MONOCYTES 7.2 %; MPV 6.5 fl. (7.2-11.1); NUCLEATED RBCS 0 /100WBC; PLATELET COUNT* 366 thou/uL (150-400); POLYS 61.2 %; RBC 4.62 mil/uL (4.20-5.00); WBC 10.3 thou/uL (4.0-11.0)
[2021-08-22 17:51] LABS: SQUAMOUS 4-10 Moderate /LPF (0-3); URINE RBC 0-2 Rare /HPF (0-2); URINE WBC-REFLEX 0-5 Rare /HPF (0-5)
[2021-08-22 17:52] LABS: BACTERIA-REFLEX >30 Many /HPF (None Seen); CASTS None Seen /LPF (None Seen); CRYSTALS None Seen /LPF (None Seen)
[2021-08-22 18:05] LABS: ALBUMIN 3.3 g/dL (3.4-5.0); CALCIUM 8.9 mg/dL (8.5-10.1); CREATININE 1.3 mg/dL (0.6-1.3); POTASSIUM 4.1 mmol/L (3.5-5.1); TOTAL BILIRUBIN 0.2 mg/dL (<0.1-1.0)
[2021-08-22] MEDS ORDERED: CEPHALEXIN500 MG PO (18:32)
[2021-08-22 18:42] VITALS: BP 116/87
== END 2021-08-22 18:42 | disposition home or self-care (01) ==
LOC: M.ERS 16:06
PROVIDERS: Nurse Practitioner Psychiatric/Mental Health
DX: N39.0 Urinary tract infection, site not specified (principal); F41.9 Anxiety disorder, unspecified; F17.210 Nicotine dependence, cigarettes, uncomplicated; Z90.710 Acquired absence of both cervix and uterus; Z79.899 Other long term (current) drug therapy; Z88.5 Allergy status to narcotic agent; Z88.6 Allergy status to analgesic agent